=== PATIENT | female | born 1945 | race Caucasian/White ===

== ENCOUNTER → 2021-05-07 | Outpatient (CLI) | payer SELFPAY | END | disposition home or self-care (01) | LOC: LAB SHORT 16:25 | PROVIDERS: Family Medicine | DX: Z51.81 Encounter for therapeutic drug level monitoring (principal); Z79.899 Other long term (current) drug therapy | CPT/HCPCS: G0480 ==

== ENCOUNTER → 2021-10-12 | Outpatient (CLI) | payer MEDICARE, OTHER ==
[2021-10-15 13:12] LABS: FATS, NEUTRAL Normal (.); FATS, TOTAL Normal (.)
== END | disposition home or self-care (01) ==
LOC: LAB SHORT 11:43
PROVIDERS: Family Medicine
DX: R19.7 Diarrhea, unspecified (principal)
CPT/HCPCS: 87015; 87045; 87046; 87205; 87338; 87899

== ENCOUNTER 2022-03-27 19:43 | Inpatient (IN) | payer MEDICARE, OTHER ==
[~2022-03-27] VITALS: Ht 170.2 cm; Wt 114.4 kg
[2022-03-27 20:28] LABS: BASOPHILS ABSOLUTE AUTO 0.11 K/mm3 (0.00-0.23); BASOPHILS PERCENT AUTO 1 % (0-2); EOSINOPHILS PERCENT AUTO 2 % (0-6); Hematocrit 35.3 % (33.0-51.0); Hemoglobin 11.1 g/dL (11.5-16.0); IMMATURE GRAN ABSOLUTE AUTO 0.43 K/mm3 (0.00-0.10); IMMATURE GRAN PERCENT AUTO 3 % (0-1); LYMPHOCYTES ABSOLUTE AUTO 2.18 K/mm3 (0.84-5.20); LYMPHOCYTES PERCENT AUTO 15 % (21-46); MONOCYTES PERCENT AUTO 11 % (4-13); Mean Corpuscular HGB 27.3 pg (26.0-34.0); Mean Corpuscular HGB Conc 31.4 g/dL (31.5-36.5); Mean Corpuscular Volume 87 fL (80-100); Mean Platelet Volume 10.2 fL (9.1-12.4); NEUTROPHILS ABSOLUTE AUTO 9.97 K/mm3 (1.96-9.15); NEUTROPHILS PERCENT AUTO 68 % (41-73); Platelet Count 332 K/mm3 (150-400); RDW Coefficient Variation 16.8 % (11.7-14.2); RDW Standard Deviation 53.7 fL (35.1-46.3); Red Blood Cell Count 4.07 M/mm3 (3.80-5.20); White Blood Cell Count 14.59 K/mm3 (4.00-11.30)
[2022-03-27 20:44] LABS: Albumin/Globulin Ratio 0.6 (0.8-1.8); Bilirubin, Total 0.3 mg/dL (0.1-1.0); Bun/Creatinine Ratio 8.5 (12.0-20.0); Calcium, Blood 8.4 mg/dL (8.5-10.1); Creatinine, Blood 15.7 mg/dL (0.40-1.00); Globulin, Blood 5.3 g/dL (2.2-4.0); Total Protein, Blood 8.3 g/dL (6.4-8.2)
[2022-03-27 21:19] LABS: Source, Urine Clean Catch
[2022-03-27 21:28] LABS: Appearance, Urine Cloudy (Clear); Blood, Urine 5+ (Neg); Color, Urine Amber (P-Yellow); Glucose Qualitative, Urine Neg (Neg); Ketones, Urine 1+ (Neg); Leukocyte Esterase, Urine 3+ (Neg); Nitrite, Urine Pos (Neg); Protein, Urine 3+ (Neg); Urobilinogen, Urine NORM (Normal)
[2022-03-27 22:09] LABS: Magnesium, Blood 2.3 mg/dL (1.6-2.4)
[2022-03-27 22:45] LABS: Phosphorus, Blood 8.7 mg/dL (2.5-4.9)
[2022-03-27 23:21] LABS: Bilirubin, Urine 2+ (Neg)
[2022-03-27 23:39] LABS: Red Blood Cells, Urine 25-50 /hpf (0-2)
[2022-03-27 23:40] LABS: Bacteria Many /hpf; Squamous Epithelial Cells Mod /hpf (Few); White Blood Cells, Urine 50-100 /hpf (0-5)
--- NOTE | 2022-03-28 01:30 | NUR ---
ARRIVAL TO ICU PATIENT ARRIVED TO ICU 14 FROM ER ALERT AND CONVERSING WITH STAFF. 3RD LITER NS BOLUS INF WITH PRESSURE BAG. SODIUM BICARD WITH PATIENT, BUT NOT INF. BELONGINGS PLACED IN CUPBOARD IN ROOM. NO FAMILY OR VISITORS AT BEDSIDE. VSS. WOUNDS PRESENT-SEE WOUND ASSESSMENT IN ADMISSION ASSESSMENT. WARM BLANKETS PROVIDED TO PATIENT. TEMP PABON PATENT AND DRAINING TO GRAVITY. REPORT COMPLETED WITH DANIEL Bridges RN.
[2022-03-28] MEDS ORDERED: LEVSOD75 PO (02:46)
[2022-03-28] MEDS ORDERED: Norco 5-325 Ta1 EACH PO (02:50)
[2022-03-28] MEDS ORDERED: Ropinirole HCl2 MG (02:55)
[2022-03-28 03:42] LABS: Hematocrit 32.6 % (33.0-51.0)
[2022-03-28 04:04] LABS: Magnesium, Blood 2.1 mg/dL (1.6-2.4)
[2022-03-28 04:14] LABS: Albumin, Blood 2.3 g/dL (3.4-5.0); Albumin/Globulin Ratio 0.5 (0.8-1.8); Bilirubin, Total 0.3 mg/dL (0.1-1.0); Bun/Creatinine Ratio 9.3 (12.0-20.0); Calcium, Blood 7.4 mg/dL (8.5-10.1); Creatinine, Blood 13.7 mg/dL (0.40-1.00); Globulin, Blood 4.4 g/dL (2.2-4.0); Phosphorus, Blood 6.9 mg/dL (2.5-4.9); Potassium, Blood 5.4 mmol/L (3.5-5.5); Total Protein, Blood 6.7 g/dL (6.4-8.2)
[2022-03-28 05:19] LABS: Source, Urine Foley catheter
[2022-03-28 05:39] LABS: Appearance, Urine Cloudy (Clear); Blood, Urine 5+ (Neg); Color, Urine Yellow (P-Yellow); Glucose Qualitative, Urine Neg (Neg); Ketones, Urine 1+ (Neg); Leukocyte Esterase, Urine 3+ (Neg); Nitrite, Urine Pos (Neg); Protein, Urine 3+ (Neg); Urobilinogen, Urine NORM (Normal)
[2022-03-28 06:21] LABS: Bilirubin, Urine 2+ (Neg); Red Blood Cells, Urine 25-50 /hpf (0-2); White Blood Cells, Urine TNTC /hpf (0-5)
[2022-03-28 06:22] LABS: Bacteria Many /hpf; Squamous Epithelial Cells Mod /hpf (Few); Transitional Epithelial Cells Few /hpf (0-Rare)
--- NOTE | 2022-03-28 06:35 | NUR ---
SHIFT SUMMARY PATIENT IN BED WATCHING TV. TOLERATED DRINKING COFFEE. BICARD STILL INF. PABON HAD 250ML OUT. BETADINE SOAKED GAUZE TO MAGGOTS IN LLE ULCERATIONS. BP REMAINS SOFT, BUT MAPS GREATER THAN 60. NO ACUTE EVENTS DURING SHIFT.
--- NOTE | 2022-03-28 07:15 | NUR ---
Assumed care of pt at 0715. Report received from offgoing RN. Pt awake, alert and oriented. She is involved in her plan of care and asking appropriate questions. Pt's temp has been steadily increasing and she is now near normothermic. Wounds soaked in betadine to assist with removal of larve. BP remains soft. Dr. Champion in to evaluate pt at shift change. RN to continue to monitor.
--- NOTE | 2022-03-28 15:09 | NUR ---
Spiritual care visit conducted. Pt talks at length about personal issues that revolve around her life story, the loss of loved ones and personal conflicts. I provide therapeutic listening, gentle after school counselor and prayer. Becuase of an immediate therapeutic alliance the conversation had depth to it and pt voiced great appreciation for the trust and encouragement and showed signs of being more at peace.
--- NOTE | 2022-03-28 18:14 | NUR ---
END OF SHIFT SUMMARY NEURO: PT ALERT AND ORIENTED. SLOW TO ANSWER QUESTIONS AFTER NAP BUT RETURNED TO BASELINE AFTER 30 MINUTES. CARDIAC: SR, NO ECTOPY. BP REMAINS SOFT, MAP >60, OK PER MD. RESP: LUNGS CTA ALL TAI, ENCOURAGED COUGH, DEEP BREATHING. SPO2 100% ON RA. GI: EATING WELL. ON INSULIN SLIDING SCALE PRIOR TO MEALS, THIS IS NEW FOR PT AND SHE WAS CONCERNED ABOUT BEING SENT HOME ON INSULIN. EDUCATION DONE RE: RENAL FAILURE AND INSULIN LIKELY BEING TEMPORARY. PT AGREEABLE. BM X1 THIS SHIFT. SOFT, PASTY, BROWN. NOTIFIED JOSH ALSTON STOOL ORDER CANCELLED. : PABON, URINE OUTPUT 800/SHIFT. HARRIET AND CLOUDY. CLEARING THROUGHOUT SHIFT. DR. BOUDREAUX FOLLOWING. SKIN: BLE SCALING, DRY. LLL OPEN AREA WITH LARVE. FULL BATH DONE THIS SHIFT. PT TOLERATED WELL AND WAS APPRECIATIVE. PERIANAL AREA EXCORIATED AND TENDER. CREAM APPLIED. SKIN ABRAISION TO RIGHT ELBOW. PT STATES THIS WAS FROM PULLING HERSELF AROUND THE FLOOR AFTER FALLING OUT OF HER RECLINER AT HOME. SKIN UNDER PANIS RED WITH OPEN RASH. NYSTATIN POWDER APPLIED. WOUND CONSULT ORDER PLACED. PSYCH: SHANICE DODD AND HER SON CREED IN TO VISIT AT BEDSIDE. YOUSIF WOULD LIKE UPDATE FROM MD ALECIA NOTIFIED AND SHE WILL CALL FAMILY TOMORROW. PT/FAMILY AGREEABLE TO THIS PLAN. IV: LEFT FA IV INFILTRATED THIS AM. POWERGLIDE PLACED IN LEFT UPPER ARM, PT TOLERATED WELL. ADDITIONAL PIV FLUSHES WELL. LEFT IN PLACE. PT AND OT EVALUATION ORDERED AND COMPLETED. PT WORKED WITH OT BUT WAS TOO TIRED AFTER TO WORK WITH PT. PALLIATIVE CARE RN FOLLOWING.
--- NOTE | 2022-03-28 20:11 | NUR ---
spoke with patient caregiver and nursing. A few attemtpts to speak with patient. Will see what pt states pt has been declining care from home. Will complet a polst and look at prognosis and plan of care.
[2022-03-29 04:04] LABS: BASOPHILS ABSOLUTE AUTO 0.05 K/mm3 (0.00-0.23); BASOPHILS PERCENT AUTO 1 % (0-2); EOSINOPHILS ABSOLUTE AUTO 0.28 K/mm3 (0.00-0.68); EOSINOPHILS PERCENT AUTO 3 % (0-6); Hemoglobin 8.3 g/dL (11.5-16.0); IMMATURE GRAN ABSOLUTE AUTO 0.35 K/mm3 (0.00-0.10); IMMATURE GRAN PERCENT AUTO 4 % (0-1); LYMPHOCYTES ABSOLUTE AUTO 1.74 K/mm3 (0.84-5.20); LYMPHOCYTES PERCENT AUTO 20 % (21-46); MONOCYTES ABSOLUTE AUTO 1.05 K/mm3 (0.16-1.47); MONOCYTES PERCENT AUTO 12 % (4-13); Mean Corpuscular HGB 26.9 pg (26.0-34.0); Mean Corpuscular HGB Conc 31.9 g/dL (31.5-36.5); Mean Corpuscular Volume 84 fL (80-100); NEUTROPHILS ABSOLUTE AUTO 5.42 K/mm3 (1.96-9.15); NEUTROPHILS PERCENT AUTO 61 % (41-73); Platelet Count 277 K/mm3 (150-400); RDW Coefficient Variation 16.8 % (11.7-14.2); Red Blood Cell Count 3.09 M/mm3 (3.80-5.20); White Blood Cell Count 8.89 K/mm3 (4.00-11.30)
[2022-03-29 04:42] LABS: Magnesium, Blood 1.9 mg/dL (1.6-2.4)
[2022-03-29 04:44] LABS: Albumin, Blood 2.1 g/dL (3.4-5.0); Anion Gap 13 mmol/L (6-16); Blood Urea Nitrogen 117 mg/dL (8-24); Bun/Creatinine Ratio 12.3 (12.0-20.0); CO2, Blood 20 mmol/L (21-32); Chloride, Blood 109 mmol/L (98-108); Creatinine, Blood 9.53 mg/dL (0.40-1.00); Glomerular Filtration Rate 4 (60-); Glucose, Blood 134 mg/dL (70-99); Phosphorus, Blood 5.4 mg/dL (2.5-4.9); Potassium, Blood 4.4 mmol/L (3.5-5.5); Sodium, Blood 142 mmol/L (136-145)
--- NOTE | 2022-03-29 05:19 | NUR ---
SHIFT SUMMARY: PT. REMAINED STABLE OVERNIGHT, PAIN MEDS WERE GIVEN ONCE OVERNIGHT FOR PAIN IN LEG. BICARB IS STILL RUNNING AT 100 AND VS HAVE ALL BEEN WNL ASIDE FROM SOME HYPOTENSION WHICH IS NORMAL FOR THIS PATIENT. NO ACUTE EVENTS OVERNIGHT AND PT. IS RESTING COMFORTABLY WITH CALL LIGHT IN REACH.
--- NOTE | 2022-03-29 07:48 | NUR ---
SHIFT ASSESSMENT PT IN BED, NAPPING. INITIALLY SLOW TO RESPOND BUT CLEARED RATHER QUICKLY. A&OX4. FOLLOWING COMMANDS, COOK BUT WEAK. NSR ON THE SWITCHBOARD CLERK. BP SOFT BUT WNL FOR PATIENT. PABON CATH PATENT, DRAINING HARRIET URINE WITH SEDIMENT. SKIN IN FAIR-POOR CONDITION. REDNESS TO COCCYX. PANUS RED, ANTI-FUNGAL POWDER APPLIED. BLE SCALING, VERY DRY. LLE WITH CLEAN DRESSING INTACT, ORDERS IN FOR WOUND CONSULT.
--- NOTE | 2022-03-29 14:11 | NUR ---
Spiritual care visit conducted. Pt is sitting on a chair and alert. Pt tells me about her fears and concerns centered around trust issues and fear of not having any say about or control over her future and her medical decision making. She is tearful at moments but quickly tries to pull herself back together. Her friend and maybe her caregiver arrives and we pray together and then I allow time for them to talk. I provide therapeutic listening and gentle marriage counselor reinforcing pt's voice and weight in her medical decisions. Pt diplays evidence of reduced stress. I will continue to remain available to pt and family.
--- NOTE | 2022-03-29 16:40 | NUR ---
Brief supportive visit this afternoon. Spoke with RN Nanda Guardado prior to visiting with Pt and discussed case. Pt is requesting assistance with completing AD/POLST. Pt resting in bed, alert and answers questions appropriately. Pt confirms her wishes are to complete forms regarding her wishes for life sustaining treatments but is requesting to complete and discuss at a different time. She reports recently taking medication for pain and is feeling sleepy. She also states she would like her friend present when having discussion. Palliative Care will F/U with Pt for advanced care planing.
--- NOTE | 2022-03-29 17:16 | NUR ---
REPORT CALLED TO MEDICAL FLOOR NURSE. TX TO MEDICAL ROOM 331 VIA ICU BED.
--- NOTE | 2022-03-29 18:28 | NUR ---
SHIFT SUMMARY PT UP TO ROOM FROM ICU. TELE BOX ON PT, CONFIRMED WITH CURTAIN MENDER, PT SR IN THE 70'S. PT ALERT AND ORIENTED, CALLS APPROPRIATELY. PT ON RA, SPO2 > 92%. PT X 1 ASSIST WITH GAIT BELT AND FWW. NO C/O PAIN. WILL CONTINUE TO MONITOR. CALL LIGHT WITHIN REACH.
[2022-03-30 05:57] LABS: BASOPHILS ABSOLUTE AUTO 0.04 K/mm3 (0.00-0.23); BASOPHILS PERCENT AUTO 1 % (0-2); EOSINOPHILS ABSOLUTE AUTO 0.23 K/mm3 (0.00-0.68); EOSINOPHILS PERCENT AUTO 3 % (0-6); Hemoglobin 8.3 g/dL (11.5-16.0); IMMATURE GRAN ABSOLUTE AUTO 0.26 K/mm3 (0.00-0.10); IMMATURE GRAN PERCENT AUTO 3 % (0-1); LYMPHOCYTES PERCENT AUTO 19 % (21-46); MONOCYTES ABSOLUTE AUTO 0.89 K/mm3 (0.16-1.47); MONOCYTES PERCENT AUTO 11 % (4-13); Mean Corpuscular HGB 27.2 pg (26.0-34.0); Mean Corpuscular HGB Conc 31.9 g/dL (31.5-36.5); Mean Corpuscular Volume 85 fL (80-100); Mean Platelet Volume 9.9 fL (9.1-12.4); NEUTROPHILS ABSOLUTE AUTO 5.14 K/mm3 (1.96-9.15); NEUTROPHILS PERCENT AUTO 64 % (41-73); Platelet Count 271 K/mm3 (150-400); RDW Coefficient Variation 16.5 % (11.7-14.2); RDW Standard Deviation 51.8 fL (35.1-46.3); Red Blood Cell Count 3.05 M/mm3 (3.80-5.20); White Blood Cell Count 8.06 K/mm3 (4.00-11.30)
[2022-03-30 06:25] LABS: Anion Gap 10 mmol/L (6-16); Blood Urea Nitrogen 107 mg/dL (8-24); Bun/Creatinine Ratio 16.3 (12.0-20.0); CO2, Blood 23 mmol/L (21-32); Calcium, Blood 7.8 mg/dL (8.5-10.1); Chloride, Blood 109 mmol/L (98-108); Creatinine, Blood 6.56 mg/dL (0.40-1.00); Glomerular Filtration Rate 6 (60-); Glucose, Blood 130 mg/dL (70-99); Magnesium, Blood 1.8 mg/dL (1.6-2.4); Phosphorus, Blood 5.1 mg/dL (2.5-4.9); Potassium, Blood 3.9 mmol/L (3.5-5.5); Sodium, Blood 142 mmol/L (136-145)
--- NOTE | 2022-03-30 06:48 | NUR ---
A/OX3-4; BRIEFLY CONFUSED UPON WAKING, EASILY REORIENTED. CALM AND COOPERATIVE WITH CARE. C/O 5/10 PAIN TO BILAT KNEES; PRN ANALGISIC PER ORDERS; HELPFUL PER PATIENT. C/O FEELING NAUSEATED; RESOLVED WITH ZOFRAN. LLE JIL CDI. REPOSITIONED Q2 HRS. TELE: SR 70's. PABON PATENT. BED ALARM SET. CALL LIGHT IN REACH; ENCOURAGED TO MAKE NEEDS KNOWN.
--- NOTE | 2022-03-30 17:25 | NUR ---
SHIFT SUMMARY- PT IS ALERT, PLESANT AND COOPERATIVE. HER APPETITE HAS BEEN POOR BUT SHE HAS EATEN SMALL BITS OF HER MEALS. SHE HAS SLEPT INTERMITENTLY THOURGHOUT THIS SHIFT. SHE WORKED WITH PT THIS SHIFT. SHE WAS UP TO THE CHAIR THIS AFTERNOON. DR. WESTFALL WAS CONSULTED ON THE PT TO EVALUATE HER DEMENTIA. HER BED IS IN THE LOW POSITION AND CALL LIGHT IS WITHIN REACH.
[2022-03-30] MEDS ORDERED: Prinivil10 MG PO (23:41)
[2022-03-30] MEDS ORDERED: GABA100 PO (23:41)
[2022-03-30] MEDS ORDERED: ROPINIROLE HCL2 M1 PO (23:43)
[2022-03-30] MEDS ORDERED: GLUCOPHAGE1000 M1 PO (23:44)
--- NOTE | 2022-03-31 04:23 | NUR ---
SHIFT SUMMARY: Pt A/Ox4 this shift but can be forgetful, bed alarm utilized. Pt had some c/o pain- recieved PRN oxy x1. Denies SOB or nausea. Transferred 2 assist walker/belt from the chair into bed. Pt is incontient of bowels at times. Salazar remains patent and had adequate amounts of urine. Pt reposionted throughout the night as she stated her coccyx was sore.
[2022-03-31 06:28] LABS: BASOPHILS ABSOLUTE AUTO 0.05 K/mm3 (0.00-0.23); BASOPHILS PERCENT AUTO 1 % (0-2); EOSINOPHILS ABSOLUTE AUTO 0.22 K/mm3 (0.00-0.68); EOSINOPHILS PERCENT AUTO 3 % (0-6); Hematocrit 27.7 % (33.0-51.0); Hemoglobin 8.6 g/dL (11.5-16.0); IMMATURE GRAN ABSOLUTE AUTO 0.31 K/mm3 (0.00-0.10); IMMATURE GRAN PERCENT AUTO 4 % (0-1); LYMPHOCYTES ABSOLUTE AUTO 1.48 K/mm3 (0.84-5.20); LYMPHOCYTES PERCENT AUTO 18 % (21-46); MONOCYTES ABSOLUTE AUTO 0.86 K/mm3 (0.16-1.47); MONOCYTES PERCENT AUTO 10 % (4-13); Mean Corpuscular HGB 27.3 pg (26.0-34.0); Mean Corpuscular Volume 88 fL (80-100); Mean Platelet Volume 9.7 fL (9.1-12.4); NEUTROPHILS ABSOLUTE AUTO 5.37 K/mm3 (1.96-9.15); NEUTROPHILS PERCENT AUTO 65 % (41-73); Platelet Count 274 K/mm3 (150-400); RDW Coefficient Variation 16.5 % (11.7-14.2); RDW Standard Deviation 52.9 fL (35.1-46.3); Red Blood Cell Count 3.15 M/mm3 (3.80-5.20); White Blood Cell Count 8.29 K/mm3 (4.00-11.30)
[2022-03-31 06:51] LABS: Albumin, Blood 2.1 g/dL (3.4-5.0); Anion Gap 8 mmol/L (6-16); Blood Urea Nitrogen 80 mg/dL (8-24); Bun/Creatinine Ratio 19.1 (12.0-20.0); CO2, Blood 27 mmol/L (21-32); Calcium, Blood 7.7 mg/dL (8.5-10.1); Chloride, Blood 109 mmol/L (98-108); Creatinine, Blood 4.19 mg/dL (0.40-1.00); Glomerular Filtration Rate 10 (60-); Glucose, Blood 180 mg/dL (70-99); Magnesium, Blood 1.6 mg/dL (1.6-2.4); Phosphorus, Blood 3.9 mg/dL (2.5-4.9); Potassium, Blood 3.7 mmol/L (3.5-5.5); Sodium, Blood 144 mmol/L (136-145)
--- NOTE | 2022-03-31 16:39 | NUR ---
SHIFT SUMMARY- PT IS ALERT, PLESANT AND COOPERATIVE. HER APPETITE IS POOR. SHE HAS HAD SOME NAUSEA THIS SHIFT. DR. WESTFALL SAW HER THIS SHIFT RECOMENDED GUARDIANSHIP. SHE WAS UP TO THE CHAIR THIS SHIFT. HER BED IS IN THE LOW POSITION AND CALL LIGHT IS WITHIN REACH.
--- NOTE | 2022-04-01 04:29 | NUR ---
SHIFT SUMMARY: Patient A/Ox4 and call light approriate this shift. Pt pleasant and cooperative with staff. Overnight pt had c/o bilateral knee pain and back pain. PRN oxy given x1 this shift. Pt denied nausea but noted she has had no appetite the last few days. Pt was repositioned as tolerated in bed. Salazar remains patent and has adequate output.
[2022-04-01 05:45] LABS: BASOPHILS ABSOLUTE AUTO 0.06 K/mm3 (0.00-0.23); BASOPHILS PERCENT AUTO 1 % (0-2); EOSINOPHILS ABSOLUTE AUTO 0.25 K/mm3 (0.00-0.68); EOSINOPHILS PERCENT AUTO 3 % (0-6); Hematocrit 26.9 % (33.0-51.0); Hemoglobin 8.4 g/dL (11.5-16.0); IMMATURE GRAN ABSOLUTE AUTO 0.23 K/mm3 (0.00-0.10); IMMATURE GRAN PERCENT AUTO 3 % (0-1); LYMPHOCYTES ABSOLUTE AUTO 1.77 K/mm3 (0.84-5.20); LYMPHOCYTES PERCENT AUTO 19 % (21-46); MONOCYTES ABSOLUTE AUTO 1.01 K/mm3 (0.16-1.47); MONOCYTES PERCENT AUTO 11 % (4-13); Mean Corpuscular HGB 27.5 pg (26.0-34.0); Mean Corpuscular HGB Conc 31.2 g/dL (31.5-36.5); Mean Corpuscular Volume 88 fL (80-100); Mean Platelet Volume 9.7 fL (9.1-12.4); NEUTROPHILS ABSOLUTE AUTO 5.96 K/mm3 (1.96-9.15); NEUTROPHILS PERCENT AUTO 64 % (41-73); Platelet Count 300 K/mm3 (150-400); RDW Coefficient Variation 16.1 % (11.7-14.2); Red Blood Cell Count 3.06 M/mm3 (3.80-5.20); White Blood Cell Count 9.28 K/mm3 (4.00-11.30)
[2022-04-01 06:10] LABS: Anion Gap 6 mmol/L (6-16); Blood Urea Nitrogen 60 mg/dL (8-24); Bun/Creatinine Ratio 23.3 (12.0-20.0); CO2, Blood 29 mmol/L (21-32); Calcium, Blood 7.7 mg/dL (8.5-10.1); Chloride, Blood 107 mmol/L (98-108); Creatinine, Blood 2.58 mg/dL (0.40-1.00); Glomerular Filtration Rate 19 (60-); Glucose, Blood 149 mg/dL (70-99); Magnesium, Blood 1.3 mg/dL (1.6-2.4); Phosphorus, Blood 3.1 mg/dL (2.5-4.9); Potassium, Blood 3.8 mmol/L (3.5-5.5); Sodium, Blood 142 mmol/L (136-145)
--- NOTE | 2022-04-01 15:21 | NUR ---
DRESSING ON RLE CHANGED TODAY, 04/01/22, PER ORDER. PT TOLERATED WELL. PT STATED WOUND WAS TENDER BUT LOOKED BETTER THAN WHEN SHE FIRST ARRIVED. MOISTURIZER APPLIED TO BLE AFTER DRESSING CHANGE. PT RESTING WITH CALL LIGHT IN REACH.
--- NOTE | 2022-04-01 16:30 | NUR ---
SHIFT SUMMARY PT IS A&O X4 AND PLEASANT. PT WORKED WITH OT AND PT TODAY AND TOLERATED WELL. PT MOTIVATED TO COMPLETE RECOMENDED EXERCISES AND AMBULATE. PT ASKED TO AMBULATE IN ROOM. PHYSICAL THERAPIST TOLD THIS NURSE THAT IT IS OK TO PUSH CHAIR CLOSE TO BATHROOM DOOR TO ALLOW PT TO AMBULATE THAT DISTANCE, TOLERATED. DRESSING ON RLE CHANGED TODAY PER ORDERS. PT TOLERATED WELL. FOAM DRESSING PLACED ON BUTTOCKS R/T OPENDED AREA. SMALL AMOUNT OF BLOOD NOTED FROM OPEN AREA. PT STATES BOTTOM IS TENDER. FLOATED PT ON PILLOWS WHILE IN BED. PT WAS UP TO CHAIR FOR MEALS. TOLERATING MEALS. USES CALL LIGHT APROPTIATELY. BED IN LOWEST POSITION AND CALL LIGHT IN REACH.
--- NOTE | 2022-04-01 17:48 | NUR ---
DR. LAYTON NOTIFED OF PRELIMINARY LOWER EXTREMITY ULTRASOUND REPORT. DVT FOUND ON ULTRASOUND FROM GROIN TO CALF. ORDERS UPDATED FOR HEPRIN DRIP.
[2022-04-01 18:50] LABS: Anti-Xa UFH, PHA Monitoring <0.10 IU/mL; International Normalized Ratio 1.11; Prothrombin Time Results 11.6 Sec (9.7-11.5)
[2022-04-02 01:32] LABS: BASOPHILS ABSOLUTE AUTO 0.05 K/mm3 (0.00-0.23); BASOPHILS PERCENT AUTO 1 % (0-2); EOSINOPHILS ABSOLUTE AUTO 0.27 K/mm3 (0.00-0.68); EOSINOPHILS PERCENT AUTO 3 % (0-6); Hematocrit 27.6 % (33.0-51.0); Hemoglobin 8.5 g/dL (11.5-16.0); IMMATURE GRAN ABSOLUTE AUTO 0.21 K/mm3 (0.00-0.10); IMMATURE GRAN PERCENT AUTO 2 % (0-1); LYMPHOCYTES ABSOLUTE AUTO 1.98 K/mm3 (0.84-5.20); LYMPHOCYTES PERCENT AUTO 20 % (21-46); MONOCYTES ABSOLUTE AUTO 0.95 K/mm3 (0.16-1.47); MONOCYTES PERCENT AUTO 10 % (4-13); Mean Corpuscular HGB 27.2 pg (26.0-34.0); Mean Corpuscular HGB Conc 30.8 g/dL (31.5-36.5); Mean Corpuscular Volume 88 fL (80-100); Mean Platelet Volume 9.5 fL (9.1-12.4); NEUTROPHILS ABSOLUTE AUTO 6.52 K/mm3 (1.96-9.15); NEUTROPHILS PERCENT AUTO 65 % (41-73); Platelet Count 289 K/mm3 (150-400); RDW Coefficient Variation 16.1 % (11.7-14.2); RDW Standard Deviation 51.7 fL (35.1-46.3); Red Blood Cell Count 3.13 M/mm3 (3.80-5.20); White Blood Cell Count 9.98 K/mm3 (4.00-11.30)
[2022-04-02 01:53] LABS: Albumin/Globulin Ratio 0.5 (0.8-1.8); Bilirubin, Total 0.2 mg/dL (0.1-1.0); Calcium, Blood 7.7 mg/dL (8.5-10.1); Creatinine, Blood 1.87 mg/dL (0.40-1.00); Globulin, Blood 4.3 g/dL (2.2-4.0); Magnesium, Blood 1.7 mg/dL (1.6-2.4); Phosphorus, Blood 2.6 mg/dL (2.5-4.9); Potassium, Blood 3.7 mmol/L (3.5-5.5); Total Protein, Blood 6.3 g/dL (6.4-8.2)
--- NOTE | 2022-04-02 08:15 | NUR ---
CRITICAL CARE NURSE SUMMARY PATIENT A&OX4, EXTREMELY WEAK. BILATERAL LOWER EXTREMITIES VERY RED, AND EXCORIATED LOOKING WITH LARGE PATCHED OF DRY SKIN AND SCABS. BILATERAL PEDAL PULSES FAINT BUT PALPABLE. FEET COOL. (NOT COLD) PATIENT TOLERATING HEPARIN GTT CURRENTLY RUNNING AT 29.9 ML/HR OR 18 UNITS/KG/HOUR. PATIENT'S POWER GLIDE IV VERY POSITIONAL, AND DOES NOT DRAW, SHE COULD BENEFIT FROM A NEW EXTENDED DWELL IF THERE IS SOMEONE HERE TODAY TO PLACE IT.
--- NOTE | 2022-04-02 18:38 | NUR ---
pt has had four bouts of loose stools today, notified Dr. Yanez, recieved orders for gi panel and probiotic, informed pt. medicated for pain once, no further changes this shift, call light in reach.
[2022-04-03 00:05] LABS: Adenovirus F 40/41 Not Detected (NOT DETECT); Astrovirus Not Detected (NOT DETECT); Campylobacter Sp Detected (NOT DETECT); Cryptosporidium Not Detected (NOT DETECT); Cyclospora Cayetanensis Not Detected (NOT DETECT); E. Coli O157 Not Detected (NOT DETECT); Entamoeba Histolytica Not Detected (NOT DETECT); Enteroaggregative E. coli-EAEC Not Detected (NOT DETECT); Enteropathogenic E. coli-EPEC Not Detected (NOT DETECT); Enterotoxigenic E. coli-ETEC Not Detected (NOT DETECT); Giardia Lamblia Not Detected (NOT DETECT); Norovirus GI/GII Not Detected (NOT DETECT); Plesiomonas Shigelloides Not Detected (NOT DETECT); Rotavirus A Not Detected (NOT DETECT); Salmonella Sp Not Detected (NOT DETECT); Sapovirus Not Detected (NOT DETECT); Shiga Toxin-prod E. coli-STEC Not Detected (NOT DETECT); Shigella/Enteroin E. coli-EIEC Not Detected (NOT DETECT); Vibrio Cholerae Not Detected (NOT DETECT); Vibrio Sp Not Detected (NOT DETECT); Yersinia Enterocolitica Not Detected (NOT DETECT)
--- NOTE | 2022-04-03 04:31 | NUR ---
SHIFT SUMMARY NO OVERNIGHT CHANGES IN PT CONDITION. VITALS STABLE, DENIES CP/SOB. X2 LOOSE STOOLS, COLLECTED SAMPLE. STOOL SAMPLE POSITIVE FOR CAMPYLOBACTER. SPUTUM SAMPLE NEEDS COLLECTED, UNABLE TO OBATIN SAMPLE BY PATIENT. BLE RED AND DRY. LLE DRSG INTACT. HEPARIN GTT CONTINUES AT THERAPUTIC RATE. PT ABLE TO USE CALL LIGHT. WILL CONTINUE TO MONITOR
[2022-04-03 05:10] LABS: BASOPHILS ABSOLUTE AUTO 0.05 K/mm3 (0.00-0.23); BASOPHILS PERCENT AUTO 1 % (0-2); EOSINOPHILS ABSOLUTE AUTO 0.24 K/mm3 (0.00-0.68); EOSINOPHILS PERCENT AUTO 2 % (0-6); Hematocrit 28.1 % (33.0-51.0); Hemoglobin 8.6 g/dL (11.5-16.0); IMMATURE GRAN ABSOLUTE AUTO 0.13 K/mm3 (0.00-0.10); IMMATURE GRAN PERCENT AUTO 1 % (0-1); LYMPHOCYTES ABSOLUTE AUTO 2.52 K/mm3 (0.84-5.20); LYMPHOCYTES PERCENT AUTO 25 % (21-46); MONOCYTES ABSOLUTE AUTO 0.94 K/mm3 (0.16-1.47); MONOCYTES PERCENT AUTO 9 % (4-13); Mean Corpuscular HGB 27.1 pg (26.0-34.0); Mean Corpuscular HGB Conc 30.6 g/dL (31.5-36.5); Mean Corpuscular Volume 89 fL (80-100); Mean Platelet Volume 9.4 fL (9.1-12.4); NEUTROPHILS ABSOLUTE AUTO 6.11 K/mm3 (1.96-9.15); NEUTROPHILS PERCENT AUTO 61 % (41-73); Platelet Count 308 K/mm3 (150-400); RDW Coefficient Variation 16.1 % (11.7-14.2); RDW Standard Deviation 52.4 fL (35.1-46.3); Red Blood Cell Count 3.17 M/mm3 (3.80-5.20); White Blood Cell Count 9.99 K/mm3 (4.00-11.30)
[2022-04-03 05:52] LABS: Albumin/Globulin Ratio 0.5 (0.8-1.8); Bilirubin, Total 0.3 mg/dL (0.1-1.0); Bun/Creatinine Ratio 17.4 (12.0-20.0); Calcium, Blood 8.3 mg/dL (8.5-10.1); Creatinine, Blood 1.49 mg/dL (0.40-1.00); Globulin, Blood 4.2 g/dL (2.2-4.0); Potassium, Blood 3.9 mmol/L (3.5-5.5); Total Protein, Blood 6.2 g/dL (6.4-8.2)
--- NOTE | 2022-04-03 12:30 | NUR ---
DRESSING CHANGE COMPLETED PER ORDER ON 04/03/22, ON LOWER LEFT LEG. PT TOLERATED WELL. SCANT AMOUNT OF YELLOW, PURULENT DRAINAGE IN WOUND BED. BANDAGE ON RIGHT ELBOW REMOVED AND NEW DRESSING APPLIED. KENDRICK SIZE WOUND WITH AN AREA OF SCAB AND YELLOWISH, OPEN AREA.
--- NOTE | 2022-04-03 16:38 | NUR ---
SHIFT SUMMARY PT A&OX4 AND PLEASANT. NO ACUTE CHANGES. DRESSINGS ON RIGHT ELBOW AND LEFT LOWER LEG WERE CHANGED TODAY. PT TOLERATED WELL. APPLIED BARRIER CREAM ON EXORIATED AREA ON BUTTOCKS. PT C/O PAIN ON BOTTOM AND HAD DIFFICULTY GETTING COMFORTABLE. MEDICATED X1 PER EAMR. PT DOES WELL WHEN FLOATED ON PILLOWS AND HEAD ELAVATED. PT STATED SHE "FELT WEEZY" IN HER LUNGS. REASSESED LUNGS AND LUNGS SOUNDED CLEAR BUT DIMINISHED. PROVIDED PT WITH INCENTIVE SPIROMETER AND EDUCATED PT ON USE. PER TELEPHONE CALL WITH DR MATTHEWS, PT IS OK TO GET UP TO BEDSIDE CHAIR. HEPRIN DRIP HAS BEEN RUNNING CONTINUOUSLY. BED IN LOWEST POSITION AND CALL LIGHT IN REACH.
[2022-04-04 03:15] LABS: BASOPHILS ABSOLUTE AUTO 0.08 K/mm3 (0.00-0.23); BASOPHILS PERCENT AUTO 1 % (0-2); EOSINOPHILS PERCENT AUTO 3 % (0-6); Hematocrit 27.9 % (33.0-51.0); Hemoglobin 8.8 g/dL (11.5-16.0); IMMATURE GRAN ABSOLUTE AUTO 0.12 K/mm3 (0.00-0.10); IMMATURE GRAN PERCENT AUTO 1 % (0-1); LYMPHOCYTES ABSOLUTE AUTO 2.34 K/mm3 (0.84-5.20); LYMPHOCYTES PERCENT AUTO 22 % (21-46); MONOCYTES ABSOLUTE AUTO 0.82 K/mm3 (0.16-1.47); MONOCYTES PERCENT AUTO 8 % (4-13); Mean Corpuscular HGB Conc 31.5 g/dL (31.5-36.5); Mean Corpuscular Volume 89 fL (80-100); Mean Platelet Volume 9.3 fL (9.1-12.4); NEUTROPHILS ABSOLUTE AUTO 7.13 K/mm3 (1.96-9.15); NEUTROPHILS PERCENT AUTO 66 % (41-73); Platelet Count 325 K/mm3 (150-400); RDW Coefficient Variation 16.4 % (11.7-14.2); RDW Standard Deviation 53.2 fL (35.1-46.3); Red Blood Cell Count 3.14 M/mm3 (3.80-5.20); White Blood Cell Count 10.79 K/mm3 (4.00-11.30)
[2022-04-04 03:34] LABS: Albumin, Blood 2.1 g/dL (3.4-5.0); Albumin/Globulin Ratio 0.5 (0.8-1.8); Bilirubin, Total 0.3 mg/dL (0.1-1.0); Bun/Creatinine Ratio 14.6 (12.0-20.0); Calcium, Blood 7.8 mg/dL (8.5-10.1); Creatinine, Blood 1.37 mg/dL (0.40-1.00); Globulin, Blood 4.3 g/dL (2.2-4.0); Magnesium, Blood 1.4 mg/dL (1.6-2.4); Phosphorus, Blood 3.2 mg/dL (2.5-4.9); Potassium, Blood 3.8 mmol/L (3.5-5.5); Total Protein, Blood 6.4 g/dL (6.4-8.2)
--- NOTE | 2022-04-04 09:43 | NUR ---
SUMMARY PT RESTED COMFORTABLY THIS SHIFT WITH PO PAIN MED,PT WAS GIVEN ADDITIONAL BOLUS OF HEPARIN THIS AM PER PHARM ORDERS.ALSO INCREASED DOSING PER ORDERS
--- NOTE | 2022-04-04 17:31 | NUR ---
SHIFT SUMMARY: PATIENT A&OX4. PLEASANT AND COOPERATIVE WITH CARE. USES CALL LIGHT APPROPRIATELY AND ABLE TO ADVOCATE FOR HER NEEDS. DENIED CP/CHEST DISCOMFORT. DENIED SOB. PATIENT ON RA WITH SPO2 ABOVE 93%. LUNGS CLEAR T/O. PATIENT WAS ABLE TO PARTICIPATE WITH PT/OT TODAY AND TOLERATED SITTING UP IN THE RECLINER CHAIR FOR ABOUT 5 HOURS. DRESSING CHANGED TO LLE. HEPARIN WAS DC'D THIS AFTERNOON AND STARTED ON ELIQUIS. POWERGLIDE TO OANH INFUSING ONE TIME DOSE OF MAGSULFATE AT THIS TIME. RECEIVED ALL SCHEDULED MEDS THIS SHIFT. VITAL SIGNS REVIEWED. PABON INPLACE FOR ACCURATE I&O'S, PATENT, DRAINING TO GRAVITY WITH YELLOW URINE. PATIENT IS INCONTININCE FOR BOWELS AND WEAR ATTENDS. MIPELIX DRESSING CHANGE TO COCCYX. BED IN LOWEST POSITION, LOCKED AND BED ALARM ON FOR SAFETY. CALL LIGHT AND ICE WATER WITHIN REACH.
[2022-04-05 09:17] LABS: BASOPHILS ABSOLUTE AUTO 0.07 K/mm3 (0.00-0.23); BASOPHILS PERCENT AUTO 1 % (0-2); EOSINOPHILS PERCENT AUTO 4 % (0-6); Hematocrit 29.1 % (33.0-51.0); Hemoglobin 9.1 g/dL (11.5-16.0); IMMATURE GRAN ABSOLUTE AUTO 0.06 K/mm3 (0.00-0.10); IMMATURE GRAN PERCENT AUTO 1 % (0-1); LYMPHOCYTES ABSOLUTE AUTO 1.53 K/mm3 (0.84-5.20); LYMPHOCYTES PERCENT AUTO 18 % (21-46); MONOCYTES ABSOLUTE AUTO 0.72 K/mm3 (0.16-1.47); MONOCYTES PERCENT AUTO 8 % (4-13); Mean Corpuscular HGB 27.7 pg (26.0-34.0); Mean Corpuscular HGB Conc 31.3 g/dL (31.5-36.5); Mean Corpuscular Volume 89 fL (80-100); Mean Platelet Volume 9.9 fL (9.1-12.4); NEUTROPHILS ABSOLUTE AUTO 5.93 K/mm3 (1.96-9.15); NEUTROPHILS PERCENT AUTO 69 % (41-73); Platelet Count 381 K/mm3 (150-400); RDW Coefficient Variation 16.6 % (11.7-14.2); RDW Standard Deviation 53.7 fL (35.1-46.3); Red Blood Cell Count 3.28 M/mm3 (3.80-5.20); White Blood Cell Count 8.61 K/mm3 (4.00-11.30)
[2022-04-05 09:51] LABS: Albumin, Blood 2.3 g/dL (3.4-5.0); Albumin/Globulin Ratio 0.5 (0.8-1.8); Bilirubin, Total 0.4 mg/dL (0.1-1.0); Bun/Creatinine Ratio 10.8 (12.0-20.0); Creatinine, Blood 1.3 mg/dL (0.40-1.00); Globulin, Blood 4.5 g/dL (2.2-4.0); Phosphorus, Blood 3.7 mg/dL (2.5-4.9); Total Protein, Blood 6.8 g/dL (6.4-8.2)
[2022-04-05] MEDS ORDERED: Acetaminophen325 M1 PO (12:29)
[2022-04-05] MEDS ORDERED: ELIQUIS5 M2 PO ×2 (12:29→12:30)
[2022-04-05] MEDS ORDERED: FURO20 PO (12:30)
[2022-04-05] MEDS ORDERED: MICONAZOLE NITR85 GM TOP (12:32)
[2022-04-05] MEDS ORDERED: VISBIOME 112.51 EACH PO (12:33)
[2022-04-05] MEDS ORDERED: POTA10T PO (12:33)
[2022-04-05 12:48] LABS: SARS-Cov-2 (COVID-19) PCR, MMC NEGATIVE (NEGATIVE)
--- NOTE | 2022-04-05 15:33 | NUR ---
REPORT GIVEN TO FLAVIA MARION AT [facility].
--- NOTE | 2022-04-05 15:55 | NUR ---
Patient is lying in bed and in street clothes. She states that she will be going to [facility] today. She then talks about her ups and downs with her health and how she feels like overall her experience has been extremely helpful both physically but spiritually as well. She talks about her struggles with depression and how the "hole she was slipping down into" has lost it's pull and power. She says that she is in a much better place and part of that improvement came from the spiritual care visits. She voices her appreciation. We then pray about the success of her new adventure to gain strength, health and mobility. She expresses gratitude for the prayer. I let her rest as transport is scheduled to arrive soon.
--- NOTE | 2022-04-05 16:36 | NUR ---
PATIENT DISCHARGED TO [facility]. POWERGLIDE IV REMOVED WITHOUT INCIDENT. PABON IN PLACE FOR NEUROGENIC BLADDER. DRESSED IN OWN CLOTHING. OFF UNIT VIA W/C AT 1633, TRANSPORTED BY W/C VAN. NO PERSONAL BELONGINGS FOUND LEFT BEHIND IN ROOM.
== END 2022-04-05 16:33 | DRG 872 ==
LOC: ER 19:43 → ICUW 23:08 → MEDS 23:08 → ICUW 03-28 00:53 → MEDS 03-29 17:15
PROVIDERS: Family Medicine; Hospitalist; Internal Medicine Nephrology; Student in an Organized Health Care Education/Training Program; ADMIT Internal Medicine
DX: A41.9 Sepsis, unspecified organism (principal); N17.9 Acute kidney failure, unspecified; E87.1 Hypo-osmolality and hyponatremia; A04.5 Campylobacter enteritis; I82.452 Acute embolism and thrombosis of left peroneal vein; I82.492 Acute embolism and thrombosis of other specified deep vein of left lower extremity; L03.116 Cellulitis of left lower limb; L03.115 Cellulitis of right lower limb; E87.20 Acidosis, unspecified; I82.412 Acute embolism and thrombosis of left femoral vein; I82.432 Acute embolism and thrombosis of left popliteal vein; I82.442 Acute embolism and thrombosis of left tibial vein; Z98.890 Other specified postprocedural states; R65.20 Severe sepsis without septic shock; E11.22 Type 2 diabetes mellitus with diabetic chronic kidney disease; E11.40 Type 2 diabetes mellitus with diabetic neuropathy, unspecified; Z20.822 Contact with and (suspected) exposure to COVID-19; E87.5 Hyperkalemia; E83.39 Other disorders of phosphorus metabolism; I95.9 Hypotension, unspecified; F60.9 Personality disorder, unspecified; I83.029 Varicose veins of left lower extremity with ulcer of unspecified site; D63.1 Anemia in chronic kidney disease; F03.90 Unspecified dementia, unspecified severity, without behavioral disturbance, psychotic disturbance, mood disturbance, and anxiety; G89.4 Chronic pain syndrome; Z88.8 Allergy status to other drugs, medicaments and biological substances; K21.9 Gastro-esophageal reflux disease without esophagitis; G25.81 Restless legs syndrome; E88.09 Other disorders of plasma-protein metabolism, not elsewhere classified
CPT/HCPCS: 36415; 76770; 80053; 80069; 81001; 82607; 82728; 82746; 82947; 83540; 83550; 83605; 83690; 83735; 83880; 84100; 84132; 85014; 85018; 85025; 85520; 85610; 85730; 87040; 87070; 87075; 87077; 87086; 87147; 87186; 87205; 87507; 93005; 93010; 93970; 96361-59; 96374-59; 96375-59; 97110; 97116; 97129; 97162; 97166; 97530; 97535; 99285-25; A9270; C1751; J0690; J0696; J0881; J1644; J2405; J3475; J7030; J7042; J7050; U0004

== ENCOUNTER 2022-06-27 12:25 | Inpatient (IN) | payer MEDICARE, OTHER ==
[~2022-06-27] VITALS: Ht 170.2 cm; Wt 115.0 kg
[~2022-06-27 12:25] MED LIST: Acetaminophen325 M1 PO; ELIQUIS5 M2 PO; FURO20 PO; GABA100 PO; GLUCOPHAGE1000 M1 PO; LEVSOD75 PO; MICONAZOLE NITR85 GM TOP; Norco 5-325 Ta1 EACH PO; POTA10T PO; Prinivil10 MG PO; ROPINIROLE HCL2 M1 PO; Ropinirole HCl2 MG; VISBIOME 112.51 EACH PO
[2022-06-27 13:13] LABS: BASOPHILS ABSOLUTE AUTO 0.09 K/mm3 (0.00-0.23); BASOPHILS PERCENT AUTO 1 % (0-2); EOSINOPHILS ABSOLUTE AUTO 0.21 K/mm3 (0.00-0.68); EOSINOPHILS PERCENT AUTO 1 % (0-6); Hematocrit 33.1 % (33.0-51.0); Hemoglobin 10.5 g/dL (11.5-16.0); IMMATURE GRAN PERCENT AUTO 1 % (0-1); LYMPHOCYTES ABSOLUTE AUTO 1.29 K/mm3 (0.84-5.20); LYMPHOCYTES PERCENT AUTO 7 % (21-46); MONOCYTES ABSOLUTE AUTO 1.11 K/mm3 (0.16-1.47); MONOCYTES PERCENT AUTO 6 % (4-13); Mean Corpuscular HGB 28.7 pg (26.0-34.0); Mean Corpuscular HGB Conc 31.7 g/dL (31.5-36.5); Mean Corpuscular Volume 90 fL (80-100); Mean Platelet Volume 9.3 fL (9.1-12.4); NEUTROPHILS ABSOLUTE AUTO 14.64 K/mm3 (1.96-9.15); NEUTROPHILS PERCENT AUTO 84 % (41-73); Platelet Count 358 K/mm3 (150-400); RDW Coefficient Variation 15.5 % (11.7-14.2); RDW Standard Deviation 51.4 fL (35.1-46.3); Red Blood Cell Count 3.66 M/mm3 (3.80-5.20); White Blood Cell Count 17.44 K/mm3 (4.00-11.30)
[2022-06-27 13:45] LABS: Albumin, Blood 2.9 g/dL (3.4-5.0); Albumin/Globulin Ratio 0.5 (0.8-1.8); Bilirubin, Total 0.4 mg/dL (0.1-1.0); Bun/Creatinine Ratio 27.9 (12.0-20.0); Calcium, Blood 8.6 mg/dL (8.5-10.1); Creatinine, Blood 2.04 mg/dL (0.40-1.00); Globulin, Blood 5.5 g/dL (2.2-4.0); Potassium, Blood 5.1 mmol/L (3.5-5.5); Total Protein, Blood 8.4 g/dL (6.4-8.2)
[2022-06-27 18:39] LABS: Source, Urine Straight Cath
[2022-06-27 18:52] LABS: Appearance, Urine Hazy (Clear); Bilirubin, Urine Neg (Neg); Blood, Urine 4+ (Neg); Color, Urine Yellow (P-Yellow); Glucose Qualitative, Urine Neg (Neg); Ketones, Urine Neg (Neg); Leukocyte Esterase, Urine Neg (Neg); Nitrite, Urine Neg (Neg); Protein, Urine 1+ (Neg); Specific Gravity, Urine 1.015 (1.003-1.022); Urobilinogen, Urine NORM (Normal)
[2022-06-27 19:15] LABS: Bacteria Few /hpf; Squamous Epithelial Cells Few /hpf (Few); White Blood Cells, Urine 0-2 /hpf (0-5)
--- NOTE | 2022-06-28 04:25 | NUR ---
SHIFT SUMMARY PATIENT IS ALERT AND ORIENTED. PATIENT HAS NOT HAD ANY ACUTE EVENTS THIS SHIFT. VITAL SIGNS REVIEWED. PATIENT IS ADMITED FOR CELLULITIS. PATIENT HAS HAD PAIN IN LEGS AND MEDICATED PRN FOR PAIN. PATIENT HAS NOT HAD ANY COMPLAINTS OF SOB, NAUSEA, OR VOMITTING THIS SHIFT. PICTURES ARE IN CHART OF LOWER BILATERAL CELLULITIS IN LEGS. BED IN LOCKED AND LOWEST POSITION. CALL LIGHT IN PLACE. WILL MONITOR UNTIL SHIFT CHANGE.
[2022-06-28 06:07] LABS: BASOPHILS ABSOLUTE AUTO 0.07 K/mm3 (0.00-0.23); BASOPHILS PERCENT AUTO 1 % (0-2); EOSINOPHILS ABSOLUTE AUTO 0.37 K/mm3 (0.00-0.68); EOSINOPHILS PERCENT AUTO 3 % (0-6); Hematocrit 26.2 % (33.0-51.0); Hemoglobin 8.4 g/dL (11.5-16.0); IMMATURE GRAN ABSOLUTE AUTO 0.08 K/mm3 (0.00-0.10); IMMATURE GRAN PERCENT AUTO 1 % (0-1); LYMPHOCYTES PERCENT AUTO 11 % (21-46); MONOCYTES ABSOLUTE AUTO 1.11 K/mm3 (0.16-1.47); MONOCYTES PERCENT AUTO 9 % (4-13); Mean Corpuscular HGB 28.2 pg (26.0-34.0); Mean Corpuscular HGB Conc 32.1 g/dL (31.5-36.5); Mean Corpuscular Volume 88 fL (80-100); Mean Platelet Volume 9.5 fL (9.1-12.4); NEUTROPHILS ABSOLUTE AUTO 9.47 K/mm3 (1.96-9.15); NEUTROPHILS PERCENT AUTO 76 % (41-73); Platelet Count 350 K/mm3 (150-400); RDW Coefficient Variation 15.4 % (11.7-14.2); RDW Standard Deviation 49.7 fL (35.1-46.3); Red Blood Cell Count 2.98 M/mm3 (3.80-5.20)
[2022-06-28 06:30] LABS: Albumin, Blood 2.1 g/dL (3.4-5.0); Albumin/Globulin Ratio 0.4 (0.8-1.8); Bilirubin, Total 0.4 mg/dL (0.1-1.0); Bun/Creatinine Ratio 25.1 (12.0-20.0); Calcium, Blood 8.2 mg/dL (8.5-10.1); Creatinine, Blood 1.79 mg/dL (0.40-1.00); Globulin, Blood 4.8 g/dL (2.2-4.0); Magnesium, Blood 2.6 mg/dL (1.6-2.4); Total Protein, Blood 6.9 g/dL (6.4-8.2)
--- NOTE | 2022-06-28 18:44 | NUR ---
SHIFT SUMMARY PATIENT MEDICATED FOR PAIN X2. PATIENT DENIES NAUSEA AND SHORTNESS OF BREATH. PATIENT IS A&O X4. [place] [facility] HAD VISITOR THIS AFTERNOON. NEW ORDERS FOR WOUND CONSULT. WOUNDS TO LEFT LEG PHOTOGRAPHED AND PLACED IN CHART. DRESSING CHANGE DONE. CONSULT FOR DR. PATTON CALLED. HE SAW PATIENT, PLAN FOR LEFT LEG ANGIO TOMORROW, NPO AFTER BREAKFAST. PATIENT AWARE. PATIENT SBP LOW, DR. OLSON NOTIFIED, FLUIDS ORDERED. PATIENT IS EATING AND DRINKING WELL. PATIENT IS PLEASANT AND COOPERATIVE WITH CARE.
--- NOTE | 2022-06-29 03:54 | NUR ---
GEOSPATIAL TECHNOLOGIST SUMMARY A&OX4. PATIENT EFFECTIVELY COMMUNICATES NEEDS. VSS. RR EVEN AND UNLABORED ON RA. TOLERATING ABO THERAPY. NS INFUSING @75ML/HR. PAIN ASSESSED AND MEDICATED PER EMAR. PATIENT IS TO BE NPO LATER THIS MORNING IN ANTICIPATION OF AN ANGIOGRAM. NO ACUTE EVENTS THROUGHOUT THE NIGHT. BED LOW AND LOCKED. CALL LIGHT WITHIN REACH. THIS RN WILL CONTINUE TO MONITOR.
[2022-06-29 07:56] LABS: BASOPHILS ABSOLUTE AUTO 0.08 K/mm3 (0.00-0.23); BASOPHILS PERCENT AUTO 1 % (0-2); EOSINOPHILS PERCENT AUTO 5 % (0-6); Hematocrit 29.6 % (33.0-51.0); Hemoglobin 9.5 g/dL (11.5-16.0); IMMATURE GRAN ABSOLUTE AUTO 0.05 K/mm3 (0.00-0.10); IMMATURE GRAN PERCENT AUTO 1 % (0-1); LYMPHOCYTES ABSOLUTE AUTO 1.39 K/mm3 (0.84-5.20); LYMPHOCYTES PERCENT AUTO 18 % (21-46); MONOCYTES ABSOLUTE AUTO 0.85 K/mm3 (0.16-1.47); MONOCYTES PERCENT AUTO 11 % (4-13); Mean Corpuscular HGB 28.2 pg (26.0-34.0); Mean Corpuscular HGB Conc 32.1 g/dL (31.5-36.5); Mean Corpuscular Volume 88 fL (80-100); Mean Platelet Volume 9.3 fL (9.1-12.4); NEUTROPHILS ABSOLUTE AUTO 4.86 K/mm3 (1.96-9.15); NEUTROPHILS PERCENT AUTO 64 % (41-73); Platelet Count 378 K/mm3 (150-400); RDW Coefficient Variation 15.2 % (11.7-14.2); Red Blood Cell Count 3.37 M/mm3 (3.80-5.20); White Blood Cell Count 7.63 K/mm3 (4.00-11.30)
[2022-06-29 08:09] LABS: Bun/Creatinine Ratio 20.5 (12.0-20.0); Calcium, Blood 8.4 mg/dL (8.5-10.1); Creatinine, Blood 1.46 mg/dL (0.40-1.00); Potassium, Blood 5.1 mmol/L (3.5-5.5)
--- NOTE | 2022-06-29 13:45 | NUR ---
TRANSFER TO ANGIOGRAM: PATIENT TRANSPORTED TO HEART CENTER VIA WHEELCHAIR WITH HEART RN'S. PATIENT AMBULATED TO THE BATHROOM WITH WALKER. DENIED DIZZINESS. PATIENT SLOW, BUT STEADY.
--- NOTE | 2022-06-29 16:15 | NUR ---
ARRIVAL: Patient arrives to PCU from the phlebotomist medical lab assistant post angio gram of her BLE, per heart center RN arteries in the BLE are clear. There is a plan to come back and look at the venous system of her BLE. The patient is alert and oriented, she reports 7/10 pain in her lower back, she was just medicated with Axtell for pain. HRR, SR in the 60s. LS CTA, biox has been high 90s on RA. BT+. She has a right groin site with an angioseal, teg chg dressing CDI. Site is soft with no hematoma. PPP. Pt has some redness to left thigh, that has stayed in the boundaries of tracing. BLE dry and scaly with a red discoloration. Patient has a dressing to LLE with Kerlex-CDI. PPP, strong. VSS. Patient denies other needs at this time. Call light in reach.
--- NOTE | 2022-06-29 18:03 | NUR ---
Summary: Patient was transferred down to PCU 14 post procedure. She is alert and oriented x4. She has chronic back pain, restless legs, and neuropathy to hands. HRR, Blood pressure stable. LS CTA, Biox high 90s on RA. BT+. She has a right groin site with angioseal and TEG CHG dressing CDI. Site has been soft with no hematoma. HOB is currently at 30 degrees. She has some redness and warmth to her left thigh, this has stayed in the tracing. She has some breakdown in her left groin-pt states she uses powder for this at home. Some redness noted to the coccyx-mepilex in place. BLE from the burdick down are dry and scaly, she has a dressing to the left LE with Kerlex-CDI. VSS. No acute changes this shift. Will report to oncoming RN.
[2022-06-29 21:25] LABS: Vancomycin, Trough 15.4 ug/mL (5.0-10.0)
--- NOTE | 2022-06-30 05:32 | NUR ---
SHIFT SUMMARY ASSUMED CARE OF PT AT 1900. PT IS A/OX4. HEART SOUND SREGULAR. LUNG SOUNDS CLEAR. PT ANGIO SITE IS SOFT WITH NO REDNESS. PT AND THIS NURSE NOTIED THAT PT LEGS ARE NOT RED HAS EARLIER IN THE SHIFT AND SWELLING IS GOING DOWN SLIGHTLY. PT WAS MEDCATED PER PAIN ONCE. PT GOT SOME SLEEP DURING THE NIGHT.
[2022-06-30 07:45] LABS: BASOPHILS ABSOLUTE AUTO 0.09 K/mm3 (0.00-0.23); BASOPHILS PERCENT AUTO 1 % (0-2); EOSINOPHILS ABSOLUTE AUTO 0.42 K/mm3 (0.00-0.68); EOSINOPHILS PERCENT AUTO 5 % (0-6); Hematocrit 28.6 % (33.0-51.0); IMMATURE GRAN ABSOLUTE AUTO 0.04 K/mm3 (0.00-0.10); IMMATURE GRAN PERCENT AUTO 1 % (0-1); LYMPHOCYTES ABSOLUTE AUTO 1.48 K/mm3 (0.84-5.20); LYMPHOCYTES PERCENT AUTO 18 % (21-46); MONOCYTES PERCENT AUTO 10 % (4-13); Mean Corpuscular HGB Conc 31.5 g/dL (31.5-36.5); Mean Corpuscular Volume 89 fL (80-100); Mean Platelet Volume 9.2 fL (9.1-12.4); NEUTROPHILS ABSOLUTE AUTO 5.51 K/mm3 (1.96-9.15); NEUTROPHILS PERCENT AUTO 66 % (41-73); Platelet Count 371 K/mm3 (150-400); RDW Coefficient Variation 15.2 % (11.7-14.2); RDW Standard Deviation 49.5 fL (35.1-46.3); Red Blood Cell Count 3.21 M/mm3 (3.80-5.20); White Blood Cell Count 8.34 K/mm3 (4.00-11.30)
[2022-06-30 07:57] LABS: Bun/Creatinine Ratio 17.5 (12.0-20.0); Calcium, Blood 8.6 mg/dL (8.5-10.1); Creatinine, Blood 1.43 mg/dL (0.40-1.00); Potassium, Blood 5.1 mmol/L (3.5-5.5)
[2022-06-30] MEDS ORDERED: CLINDAMYCIN HC300 MG PO (12:39)
--- NOTE | 2022-06-30 15:14 | NUR ---
SHIFT SUMMARY; DISCHARGED TO HOME. VERBAL AND WRITTEN DISCHARGE INSTRUCTION GIVEN. APPOINT MADE AT WOUND CARE AND PCP. RIGHT LEG WRAPPED BY REGULATORY PRODUCT MANAGER TODAY. A/A/OX4, ABULATES WITH SLOW STEADY GAIT AND FRONT WHEEL WALKER. RX FAXED TO [facility].
== END 2022-06-30 15:55 | disposition home or self-care (01) | DRG 872 ==
LOC: ER 12:25 → MEDS 18:32 → PCU 06-29 14:32
PROVIDERS: Physician Assistant; ADMIT Internal Medicine
DX: A41.9 Sepsis, unspecified organism (principal); L03.116 Cellulitis of left lower limb; L97.929 Non-pressure chronic ulcer of unspecified part of left lower leg with unspecified severity; N18.4 Chronic kidney disease, stage 4 (severe); Z86.718 Personal history of other venous thrombosis and embolism; I12.9 Hypertensive chronic kidney disease with stage 1 through stage 4 chronic kidney disease, or unspecified chronic kidney disease; E11.22 Type 2 diabetes mellitus with diabetic chronic kidney disease; Z85.79 Personal history of other malignant neoplasms of lymphoid, hematopoietic and related tissues; E78.5 Hyperlipidemia, unspecified; I87.2 Venous insufficiency (chronic) (peripheral); E03.9 Hypothyroidism, unspecified; Z20.822 Contact with and (suspected) exposure to COVID-19
CPT/HCPCS: 36415; 51701; 74176; 76937; 80048; 80053; 80202; 81001; 83690; 83735; 85025; 93926; 93971; 96366; 96372; 96374-59; 96376; 99152; 99153; 99285-25; A9270; C1751; C1760; C1769; C1887; C1894; G0378; J0696; J1644; J1650; J2250; J3010; J3370; J7030; J7050; Q9967

== ENCOUNTER 2022-07-22 00:06 | Day surgery (SDC) | payer MEDICARE ==
[~2022-07-22 00:06] MED LIST changes: +CLINDAMYCIN HC300 MG PO
== END 2022-07-22 23:15 | disposition home or self-care (01) ==
LOC: WOUND 00:06
DX: I87.312 Chronic venous hypertension (idiopathic) with ulcer of left lower extremity (principal); L97.822 Non-pressure chronic ulcer of other part of left lower leg with fat layer exposed
CPT/HCPCS: A9270

== ENCOUNTER 2022-08-05 00:19 | Day surgery (SDC) | payer MEDICARE | END 2022-08-05 23:10 | disposition home or self-care (01) | LOC: WOUND 00:19 | DX: I87.312 Chronic venous hypertension (idiopathic) with ulcer of left lower extremity (principal); L97.822 Non-pressure chronic ulcer of other part of left lower leg with fat layer exposed; I73.9 Peripheral vascular disease, unspecified; I87.2 Venous insufficiency (chronic) (peripheral); E11.9 Type 2 diabetes mellitus without complications | CPT/HCPCS: A9270 ==

== ENCOUNTER 2022-08-19 01:51 | Day surgery (SDC) | payer MEDICARE | END 2022-08-19 23:05 | disposition home or self-care (01) | LOC: WOUND 01:51 | DX: I87.312 Chronic venous hypertension (idiopathic) with ulcer of left lower extremity (principal); L97.822 Non-pressure chronic ulcer of other part of left lower leg with fat layer exposed; I87.2 Venous insufficiency (chronic) (peripheral); I73.9 Peripheral vascular disease, unspecified | CPT/HCPCS: G0463 ==

== ENCOUNTER → 2023-05-05 | Outpatient (CLI) | payer MEDICARE ==
[2023-05-05 19:17] LABS: Creatinine Urine 90.2 mg/dL (27.00-270.00); Microalbumin, Urine Quant. 9.98 mg/L (0.000-20.000); Protein, Urine Quantitative 12.3 mg/dL (0.0-11.9)
== END | disposition home or self-care (01) ==
LOC: LAB 05:30 → LAB SHORT 05:30
PROVIDERS: Internal Medicine Nephrology
DX: N18.30 Chronic kidney disease, stage 3 unspecified (principal); D63.1 Anemia in chronic kidney disease; N25.81 Secondary hyperparathyroidism of renal origin; E55.9 Vitamin D deficiency, unspecified; E78.00 Pure hypercholesterolemia, unspecified; R76.9 Abnormal immunological finding in serum, unspecified; R94.5 Abnormal results of liver function studies; R94.6 Abnormal results of thyroid function studies
CPT/HCPCS: 81050; 82043; 82570; 84156

== ENCOUNTER 2023-06-22 20:06 | Inpatient (IN) | payer OTHER ==
[~2023-06-22] VITALS: Ht 170.2 cm; Wt 122.9 kg
[2023-06-22 23:33] LABS: BASOPHILS ABSOLUTE AUTO 0.09 K/mm3 (0.00-0.23); BASOPHILS PERCENT AUTO 1 % (0-2); EOSINOPHILS ABSOLUTE AUTO 0.23 K/mm3 (0.00-0.68); EOSINOPHILS PERCENT AUTO 2 % (0-6); Hematocrit 33.7 % (33.0-51.0); Hemoglobin 11.1 g/dL (11.5-16.0); IMMATURE GRAN ABSOLUTE AUTO 0.05 K/mm3 (0.00-0.10); IMMATURE GRAN PERCENT AUTO 1 % (0-1); LYMPHOCYTES PERCENT AUTO 25 % (21-46); MONOCYTES ABSOLUTE AUTO 0.86 K/mm3 (0.16-1.47); MONOCYTES PERCENT AUTO 9 % (4-13); Mean Corpuscular HGB 31.1 pg (26.0-34.0); Mean Corpuscular HGB Conc 32.9 g/dL (31.5-36.5); Mean Corpuscular Volume 94 fL (80-100); Mean Platelet Volume 10.4 fL (9.1-12.4); NEUTROPHILS ABSOLUTE AUTO 6.26 K/mm3 (1.96-9.15); NEUTROPHILS PERCENT AUTO 63 % (41-73); Platelet Count 263 K/mm3 (150-400); RDW Coefficient Variation 13.7 % (11.7-14.2); RDW Standard Deviation 47.5 fL (35.1-46.3); Red Blood Cell Count 3.57 M/mm3 (3.80-5.20); White Blood Cell Count 9.99 K/mm3 (4.00-11.30)
[2023-06-22 23:45] LABS: Source, Urine Clean Catch
[2023-06-22 23:49] LABS: Bilirubin, Urine Neg (Neg); Blood, Urine 2+ (Neg); Glucose Qualitative, Urine 4+ (Neg); Ketones, Urine Neg (Neg); Leukocyte Esterase, Urine 3+ (Neg); Nitrite, Urine Neg (Neg); Protein, Urine Neg (Neg); Urobilinogen, Urine NORM (Normal)
[2023-06-22 23:57] LABS: Albumin/Globulin Ratio 0.7 (0.8-1.8); Bilirubin, Total 0.5 mg/dL (0.1-1.0); Bun/Creatinine Ratio 17.9 (12.0-20.0); Calcium, Blood 8.2 mg/dL (8.5-10.1); Creatinine, Blood 1.12 mg/dL (0.40-1.00); Globulin, Blood 4.3 g/dL (2.2-4.0); Potassium, Blood 4.1 mmol/L (3.5-5.5); Total Protein, Blood 7.3 g/dL (6.4-8.2)
[2023-06-23 00:12] LABS: Appearance, Urine Hazy (Clear); Color, Urine Yellow (P-Yellow)
[2023-06-23 00:14] LABS: Bacteria Many /hpf; Red Blood Cells, Urine 0-2 /hpf (0-2); Squamous Epithelial Cells Few /hpf (Few); White Blood Cells, Urine 25-50 /hpf (0-5); Yeast/Fungi Urine Few /hpf
[2023-06-23 06:30] LABS: BASOPHILS ABSOLUTE AUTO 0.08 K/mm3 (0.00-0.23); BASOPHILS PERCENT AUTO 1 % (0-2); EOSINOPHILS ABSOLUTE AUTO 0.22 K/mm3 (0.00-0.68); EOSINOPHILS PERCENT AUTO 3 % (0-6); Hematocrit 34.5 % (33.0-51.0); Hemoglobin 11.7 g/dL (11.5-16.0); IMMATURE GRAN ABSOLUTE AUTO 0.05 K/mm3 (0.00-0.10); IMMATURE GRAN PERCENT AUTO 1 % (0-1); LYMPHOCYTES ABSOLUTE AUTO 1.75 K/mm3 (0.84-5.20); LYMPHOCYTES PERCENT AUTO 22 % (21-46); MONOCYTES ABSOLUTE AUTO 0.63 K/mm3 (0.16-1.47); MONOCYTES PERCENT AUTO 8 % (4-13); Mean Corpuscular HGB 31.7 pg (26.0-34.0); Mean Corpuscular HGB Conc 33.9 g/dL (31.5-36.5); Mean Corpuscular Volume 94 fL (80-100); Mean Platelet Volume 10.3 fL (9.1-12.4); NEUTROPHILS ABSOLUTE AUTO 5.41 K/mm3 (1.96-9.15); NEUTROPHILS PERCENT AUTO 67 % (41-73); Platelet Count 244 K/mm3 (150-400); RDW Coefficient Variation 13.9 % (11.7-14.2); RDW Standard Deviation 47.2 fL (35.1-46.3); Red Blood Cell Count 3.69 M/mm3 (3.80-5.20); White Blood Cell Count 8.14 K/mm3 (4.00-11.30)
[2023-06-23 06:51] LABS: Albumin, Blood 3.1 g/dL (3.4-5.0); Albumin/Globulin Ratio 0.7 (0.8-1.8); Bilirubin, Total 0.5 mg/dL (0.1-1.0); Bun/Creatinine Ratio 16.8 (12.0-20.0); Calcium, Blood 8.5 mg/dL (8.5-10.1); Creatinine, Blood 1.07 mg/dL (0.40-1.00); Globulin, Blood 4.5 g/dL (2.2-4.0); Potassium, Blood 4.1 mmol/L (3.5-5.5); Total Protein, Blood 7.6 g/dL (6.4-8.2)
[2023-06-23 13:19] VITALS: BP 147/79
[2023-06-23] MEDS ORDERED: ASCO500 PO (14:19)
[2023-06-23 15:48] VITALS: BP 135/80
--- NOTE | 2023-06-23 17:23 | NUR ---
LATE ENTRY PT ADMIT FROM ER. ALERT AND ORIENTED X4 FORGETFUL. CALM AND COOPERATIVE. NO AM MEDS THIS MORNING. DISCUSSED WITH DR. DEWITT AND PHARMACY, PLEASE SEE EMAR. DR. DEWITT WOULD LIKE TO GIVE LONG ACTING INSULIN NOW INSTEAD OF 2100. ALSO GIVE 5 UNITS LISPRO NOW TO COVER CBG 423. PT DID NOT RECIEVE INSULIN AND ATE LUNCH IN ER. PURWICK IN PLACE. PT DOES NOT FEEL SAFE ENOUGH TO WALK TODAY. BASELINE INDEPENDENT WITH FWW. PT ABLE TO STAND PIVOT FROM WHEELCHAIR TO BED.
--- NOTE | 2023-06-23 17:47 | NUR ---
PT CBG 370. COVERED WITH [address] CURRIE >350. CHECK CBG HS. NO NEW ORDERS.
[2023-06-23 19:53] VITALS: BP 109/61
--- NOTE | 2023-06-24 05:09 | NUR ---
PT A&O X4, FORGETFUL. PT REPORT OF SLEEPWALKING, BED ALARM IN PLACE THROUGH THE NIGHT. PT STAYED SAFELY IN BED AND SLEPT APROXIMATELY 5-[address] DUE TO INCREASED WEAKNESS. PT AMBULATES WITH WALKER AT BASLINE. cELLULITIS TO LOWER EXTREMITIES BILAT. WOUND CARE WILL BE EVALUATING PT FURTHER TODAY. 06/24/22 JERSON SANDERS RN
[2023-06-24 06:40] LABS: BASOPHILS ABSOLUTE AUTO 0.09 K/mm3 (0.00-0.23); BASOPHILS PERCENT AUTO 1 % (0-2); EOSINOPHILS ABSOLUTE AUTO 0.24 K/mm3 (0.00-0.68); EOSINOPHILS PERCENT AUTO 3 % (0-6); Hematocrit 35.5 % (33.0-51.0); Hemoglobin 11.5 g/dL (11.5-16.0); IMMATURE GRAN ABSOLUTE AUTO 0.07 K/mm3 (0.00-0.10); IMMATURE GRAN PERCENT AUTO 1 % (0-1); LYMPHOCYTES ABSOLUTE AUTO 2.09 K/mm3 (0.84-5.20); LYMPHOCYTES PERCENT AUTO 25 % (21-46); MONOCYTES ABSOLUTE AUTO 0.82 K/mm3 (0.16-1.47); MONOCYTES PERCENT AUTO 10 % (4-13); Mean Corpuscular HGB 31.3 pg (26.0-34.0); Mean Corpuscular HGB Conc 32.4 g/dL (31.5-36.5); Mean Corpuscular Volume 97 fL (80-100); Mean Platelet Volume 10.3 fL (9.1-12.4); NEUTROPHILS ABSOLUTE AUTO 5.08 K/mm3 (1.96-9.15); NEUTROPHILS PERCENT AUTO 61 % (41-73); Platelet Count 248 K/mm3 (150-400); RDW Coefficient Variation 14.1 % (11.7-14.2); RDW Standard Deviation 50.2 fL (35.1-46.3); Red Blood Cell Count 3.67 M/mm3 (3.80-5.20); White Blood Cell Count 8.39 K/mm3 (4.00-11.30)
[2023-06-24 07:05] LABS: Bun/Creatinine Ratio 14.9 (12.0-20.0); Calcium, Blood 8.2 mg/dL (8.5-10.1); Creatinine, Blood 1.41 mg/dL (0.40-1.00); Potassium, Blood 4.4 mmol/L (3.5-5.5)
[2023-06-24 07:21] VITALS: BP 120/76
--- NOTE | 2023-06-24 12:14 | NUR ---
CALLED DR MCKEON RE [facility] [place] [facility]. LOW SCALE.. HE MOVING TO MED SCALE.
[2023-06-24 15:54] VITALS: BP 126/73
--- NOTE | 2023-06-24 17:19 | NUR ---
PT PLEASANT THIS SHIFT. 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 REALLY ENJOYED JOB. REDNESS ON LEGS PRESENTS SOME LESS RED AND RETRACTED FRO PRIOR MARKINGS. DR UPPED ACHS SCALE TO MEDIUM. COUND ON L LEG IS CDI. DRESSING INTACT. PT 1 ASST TO CHAIR AND BACK TO BED. NO OTHER CONCERNS NOTED. SHEREEN IN LOW POSITION, CALL LITE IN REACH,, CALLS APPROP
[2023-06-24 19:52] VITALS: BP 114/62
[2023-06-25 03:40] VITALS: BP 119/70
--- NOTE | 2023-06-25 04:16 | NUR ---
PT AXO X4, PLEASANT THROUGHOUT SHIFT. PT UP IN CHAIR AND TOOK A SHORT WALK WITH WALKER AND STAND BY ASSIST TO THE HALLWAY THIS SHIFT. PT LEGS BILAT STILL SHOWING CELLULITIS EDEMA BUT THEY ARE SHOWING DECREASED REDNESS FROM PREVIOUS SKIN MARKINGS. PT DRESSING TO L LEG STILL INTACT. PT REPORTING PAIN IN LEGS AND MEDICATED FOR PAIN PER EMAR EFFECTIVELY. IV TO R FOREARM D/C'D DUE TO LEAKAGE AND PAIN AT IV SITE, PT TOLERATED REMOVAL WELL. BED ALARM SET THROUGH THE NIGHT DUE TO PT SELF REPORT OF SLEEPWALKING. PT SLEPT MOST OF THE NIGHT. 06/25/22 SD RN
[2023-06-25 05:37] LABS: BASOPHILS ABSOLUTE AUTO 0.09 K/mm3 (0.00-0.23); BASOPHILS PERCENT AUTO 1 % (0-2); EOSINOPHILS ABSOLUTE AUTO 0.29 K/mm3 (0.00-0.68); EOSINOPHILS PERCENT AUTO 3 % (0-6); Hematocrit 35.8 % (33.0-51.0); Hemoglobin 11.7 g/dL (11.5-16.0); IMMATURE GRAN ABSOLUTE AUTO 0.08 K/mm3 (0.00-0.10); IMMATURE GRAN PERCENT AUTO 1 % (0-1); LYMPHOCYTES ABSOLUTE AUTO 2.14 K/mm3 (0.84-5.20); LYMPHOCYTES PERCENT AUTO 24 % (21-46); MONOCYTES ABSOLUTE AUTO 0.72 K/mm3 (0.16-1.47); MONOCYTES PERCENT AUTO 8 % (4-13); Mean Corpuscular HGB 31.3 pg (26.0-34.0); Mean Corpuscular HGB Conc 32.7 g/dL (31.5-36.5); Mean Corpuscular Volume 96 fL (80-100); Mean Platelet Volume 10.2 fL (9.1-12.4); NEUTROPHILS ABSOLUTE AUTO 5.47 K/mm3 (1.96-9.15); NEUTROPHILS PERCENT AUTO 62 % (41-73); Platelet Count 235 K/mm3 (150-400); RDW Standard Deviation 49.2 fL (35.1-46.3); Red Blood Cell Count 3.74 M/mm3 (3.80-5.20); White Blood Cell Count 8.79 K/mm3 (4.00-11.30)
[2023-06-25 06:06] LABS: Bun/Creatinine Ratio 17.2 (12.0-20.0); C-REACTIVE PROTEIN, EXT RANGE 2.18 mg/dL (0.000-0.300); Calcium, Blood 8.2 mg/dL (8.5-10.1); Creatinine, Blood 1.45 mg/dL (0.40-1.00); Potassium, Blood 4.4 mmol/L (3.5-5.5)
[2023-06-25 07:14] VITALS: BP 118/68
--- NOTE | 2023-06-25 11:35 | NUR ---
SPOKE TO DR LINDA MELENDREZ ABD AND CLARK FOLDS RED , MICONOZOLE ORDERS GIVEN
[2023-06-25 16:05] VITALS: BP 120/71
--- NOTE | 2023-06-25 17:52 | NUR ---
PT PLEASANT TODAY. STATES PAIN MANAGED TO HER SATISFACTION WITH AVAIL MEDS. MARIA ESTHER MARION CAHNGED WOUND WRAP THIS AM. PRESENTLY CDI. SHE HAS BEEN UP TO CHAIR TODAY. DID INCREASE THE LONG ACTING INSULIN FOR TONITE. NO OTHER CONCERNS NOTED. BED IN LOW POSITION CALL LITE IN REACH, CALLS APPROP
[2023-06-25 19:51] VITALS: BP 137/75
[2023-06-26 03:56] VITALS: BP 90/78
--- NOTE | 2023-06-26 05:38 | NUR ---
PT SLEPT APPROX 3-4 HOURS THROUGH THE NIGHT. NO ACUTE CHANGES. PT MEDICATED WITH PAIN MEDS PER EMAR THROUGH THE NIGHT. LEG WOUNDS/REDNESS CONTINUES TO DECREASE. PT WAS PLEASANT AND COOPERATIVE THROUGH THE NIGHT. 06/26/22 JERSON SANDERS RN
[2023-06-26 05:44] LABS: BASOPHILS ABSOLUTE AUTO 0.12 K/mm3 (0.00-0.23); BASOPHILS PERCENT AUTO 1 % (0-2); EOSINOPHILS ABSOLUTE AUTO 0.36 K/mm3 (0.00-0.68); EOSINOPHILS PERCENT AUTO 4 % (0-6); Hematocrit 37.3 % (33.0-51.0); Hemoglobin 12.1 g/dL (11.5-16.0); IMMATURE GRAN PERCENT AUTO 1 % (0-1); LYMPHOCYTES ABSOLUTE AUTO 2.19 K/mm3 (0.84-5.20); LYMPHOCYTES PERCENT AUTO 23 % (21-46); MONOCYTES ABSOLUTE AUTO 0.83 K/mm3 (0.16-1.47); MONOCYTES PERCENT AUTO 9 % (4-13); Mean Corpuscular HGB 30.9 pg (26.0-34.0); Mean Corpuscular HGB Conc 32.4 g/dL (31.5-36.5); Mean Corpuscular Volume 95 fL (80-100); NEUTROPHILS ABSOLUTE AUTO 5.99 K/mm3 (1.96-9.15); NEUTROPHILS PERCENT AUTO 62 % (41-73); Platelet Count 252 K/mm3 (150-400); RDW Coefficient Variation 13.7 % (11.7-14.2); RDW Standard Deviation 47.8 fL (35.1-46.3); Red Blood Cell Count 3.91 M/mm3 (3.80-5.20); White Blood Cell Count 9.59 K/mm3 (4.00-11.30)
[2023-06-26 06:05] LABS: Bun/Creatinine Ratio 19.7 (12.0-20.0); C-REACTIVE PROTEIN, EXT RANGE 1.98 mg/dL (0.000-0.300); Calcium, Blood 8.7 mg/dL (8.5-10.1); Creatinine, Blood 1.22 mg/dL (0.40-1.00); Potassium, Blood 4.4 mmol/L (3.5-5.5)
[2023-06-26 07:21] VITALS: BP 116/65
--- NOTE | 2023-06-26 17:59 | NUR ---
SHIFT SUMMARY PT AOX4, FORGETFUL AT TIMES. MEDICATED FOR PAIN PER THE EMAR. NO OTHER COMPLAINTS. WOUND CHANGED COMPLETED BY THE WOUND CARE NURSE THIS SHIFT. PT TOLERATED IT WELL. PT UP TO THE CHAIR, A 1 ASSIST WITH THE FWW TO THE BR. SPOKE WITH HER CLOSE FRIENDS AT THE BS TODAY. CALL LIGHT WITHIN REACH, BED IN THE LOWEST POSITION. WILL REPORT TO ONCOMING NURSE.
[2023-06-26 19:51] VITALS: BP 105/65
--- NOTE | 2023-06-27 03:14 | NUR ---
STRETCHING MACHINE TENDER FRAME SUMAMRY VSS. IVF AND ANTIBIOTICS INFUSING ORDERED. PAIN MEDS FOR LEG PAIN ADMIN - SEE MAR FOR DETAILS. HAS BEEN RESTING QUIETLY WITH FEW INTERRUPTIONS. CALL LIGHT IN REACH. WILL CONTINUE TO MONITOR. DRESSING OF LEG CDI
[2023-06-27 03:21] VITALS: BP 125/67
[2023-06-27 07:09] VITALS: BP 105/69
[2023-06-27 08:57] VITALS: BP 108/65
[2023-06-27 16:25] VITALS: BP 92/58
--- NOTE | 2023-06-27 17:37 | NUR ---
SHIFT SUMMARY A&OX4, COOPERATIVE WITH CARE. SLEEPY T/O SHIFT. COMPLAINED OF PAIN TO LLE WOUND. MEDICATED PER EMAR PROTOCOL. HYPOTENSIVE AT 1630, ORDERS TO GIVE A 500ML BOLUS, CURRENTLY RUNNING. DENIED ANY CP/PRESSURE, HEADACHE, DIZZINESS, OR SOB. NONPRODUCTIVE COUGH NOTED. PUREWICK IN PLACE DUE TO PATIENT FEELING WEAK AND LETHARGIC. CURRENTLY LAYING IN BED RESTING. BED IN THE LOWEST POSITION. CALL LIGHT WITHIN REACH.
[2023-06-27 19:50] VITALS: BP 97/52
[2023-06-28 05:22] LABS: BASOPHILS PERCENT AUTO 1 % (0-2); EOSINOPHILS ABSOLUTE AUTO 0.31 K/mm3 (0.00-0.68); EOSINOPHILS PERCENT AUTO 4 % (0-6); Hematocrit 35.8 % (33.0-51.0); Hemoglobin 11.5 g/dL (11.5-16.0); IMMATURE GRAN ABSOLUTE AUTO 0.12 K/mm3 (0.00-0.10); IMMATURE GRAN PERCENT AUTO 1 % (0-1); LYMPHOCYTES ABSOLUTE AUTO 2.25 K/mm3 (0.84-5.20); LYMPHOCYTES PERCENT AUTO 26 % (21-46); MONOCYTES ABSOLUTE AUTO 0.78 K/mm3 (0.16-1.47); MONOCYTES PERCENT AUTO 9 % (4-13); Mean Corpuscular HGB 31.1 pg (26.0-34.0); Mean Corpuscular HGB Conc 32.1 g/dL (31.5-36.5); Mean Corpuscular Volume 97 fL (80-100); Mean Platelet Volume 10.3 fL (9.1-12.4); NEUTROPHILS ABSOLUTE AUTO 4.98 K/mm3 (1.96-9.15); NEUTROPHILS PERCENT AUTO 58 % (41-73); Platelet Count 240 K/mm3 (150-400); RDW Standard Deviation 50.1 fL (35.1-46.3); White Blood Cell Count 8.54 K/mm3 (4.00-11.30)
--- NOTE | 2023-06-28 05:22 | NUR ---
SHIFT SUMMARY PT A&OX4. MEDICATED PER EMAR FOR PAIN WITH GOOD EFFECT. CONTINUING ABX PER MD ORDERS. VSS BUT BP ON THE SOFT SIDE. MIDODRINE ADMINISTERED PER EMAR. INSULINE GLARGINE GIVEN AT HS PER EMAR. PT ABLE TO SLEEP MOST OF NIGHT. BED ALARM ON. BED IN LOWEST POSITION AND CALL LIGHT IN REACH.
[2023-06-28 05:37] VITALS: BP 105/65
[2023-06-28 06:44] LABS: Albumin, Blood 2.6 g/dL (3.4-5.0); Anion Gap 6 mmol/L (6-16); Blood Urea Nitrogen 26 mg/dL (8-24); Bun/Creatinine Ratio 20.3 (12.0-20.0); CO2, Blood 24 mmol/L (21-32); Calcium, Blood 8.2 mg/dL (8.5-10.1); Chloride, Blood 105 mmol/L (98-108); Creatinine, Blood 1.28 mg/dL (0.40-1.00); Glomerular Filtration Rate 43 (60-); Glucose, Blood 253 mg/dL (70-99); Phosphorus, Blood 3.4 mg/dL (2.5-4.9); Potassium, Blood 4.4 mmol/L (3.5-5.5); Sodium, Blood 135 mmol/L (136-145)
[2023-06-28 07:24] VITALS: BP 95/60
[2023-06-28 13:14] VITALS: BP 102/65
[2023-06-28 15:17] VITALS: BP 125/80
--- NOTE | 2023-06-28 15:25 | NUR ---
WOUND CARE LLE WOUND DRESSING CHANGED PER ORDER. PT TOLERATED WELL. PLAN TO MICHELLE NEELY TOMORROW. NEW PHOTO AND ASSESSMENT IN HARD CHART
--- NOTE | 2023-06-28 18:13 | NUR ---
Initial palliative care consult: Vesna is a 78 year old who was admitted with BLE cellulitis on 06/23/23. She has a history of DM type 2, neuropathy, LE wounds, chronic DVT and multiple myloma. Vesna is awake in her room this afternoon. She reports her LLE has pain 2-3/10. She states she was recently medicated for pain. She is A/O x 3 currently although she states some days her dementia is better, sometimes worse. She reports that she has "sundowners at night" and states that she sleep walks sometimes outside at night. Appetite is good, CBGs are elevated, no nausea. Reports neuropathy to hands and feet which is chronic. She also states she has restless legs. Vesna reports she lives [place]" with her friend Jill and Jill's son. She states she has her own little cottage right near Jill's house. She tells this commercial insurance underwriter that she doesn't feel safe in her cottage because she recognizes that she can no longer care for herself. Sometimes she forgets where she is, how to do things and can't remember if she took her medications or not. She tells this commercial insurance underwriter that she isn't able to live alone anymore and that she needs to go into some type of care facility where she will get the care she needs. Vesna reports that she doesn't want to burden Jill with her increasing care needs. Shes report her friend and decision maker is Jill, whom she has known for 40 years. Vesna is and has no children. Jill is not a blood relative but she is the only family Vesna says that she has. Vesna states that Jill helps her make medical decisions. Vesna confirms her full code status. As this commercial insurance underwriter was leaving her room, Jill called to talk to Vesna. Vesna requested that this commercial insurance underwriter speak with Jill on the phone. Jill reports that Vesna's health has declined and care needs have increased dramatically over the past year and a half. Jill reports that Vesna moved out of her own place into the cottage near Jill's house so that she is only about 20 feet away. Jill states she checks in on Vesna frequently during the day but reports that she can't stay up all night to check on her through the night. Jill reports Vesna is incontinent of mostly bladder and sometimes bowel. Jill reports that she and her son will need to remove the floor and subfloor from the cottage Vesna was staying in because of the incontinence and the smell. Jill also reports that Vesna hoards trash and food will go bad in her refrigerator. Jill tells this commercial insurance underwriter she loves her friend kelsi but can't take care of her as she has her own medical issues. Jill is willing to assist Vesna in getting the medicaid process going and help with placement. She made several calls to [employer] today that were not returned. Jill also stated that Vesna told her someone came from [employer] to check on the house but no one was around. Jill is requesting help with communicating with [employer]. Jill reports that she worked with Hilaria, social and political studies professor at [facility] over a year ago and requests that this commercial insurance underwriter contact Hilaria for assistance. OLIVIA for [employer] for Angela DE LEON RN and Hilaria, social and political studies professor to follow up with Jill and Vesna. PC to continue to follow for advanced care planning and symptom management prn.
--- NOTE | 2023-06-28 19:31 | NUR ---
PT IS A/OX4, PLEASANT AND COOPERATIVE. THE PT IS UP WITH MINIMAL ASSIST TO THE CHAIR. THE PT APPEARS TO BE BREATHING EASILY AT REST. RUBBER TURNER ANNEMARIE REDRESSED THE PT WOUND THIS AM THE PT WAS MEDICATED FOR PAIN X2 TODAY AND FOR RESTLESS LEGS X1. CALL LIGHT IN REACH. BED IN THE LOW POSITION
[2023-06-28 19:49] VITALS: BP 109/70
[2023-06-29 05:16] VITALS: BP 121/82
--- NOTE | 2023-06-29 05:53 | NUR ---
SHIFT SUMMARY PT A&OX4 AND PLEASANT. PT C/O PAIN AND MEDICATED PER EMAR WITH GOOD EFFECT. CONTINUING IV ABX PER MD ORDER. VSS, HOWEVER BP REAMINS SOFT BUT IMPROVED FROM YESTERDAY. BLOOD GLUCOSE ELEVATED SO HUMALOG AND GLARGINE GIVEN PER EMAR AT HS. DRESSINGS ON LEFT LOWER LEG REAMIN C/D/I. PT CALLS APPROPRIATELY. BED ALARM ON. BED IN LOWEST POSITION AND CALL LIGHT IN REACH.
[2023-06-29 06:11] LABS: BASOPHILS ABSOLUTE AUTO 0.08 K/mm3 (0.00-0.23); BASOPHILS PERCENT AUTO 1 % (0-2); EOSINOPHILS ABSOLUTE AUTO 0.26 K/mm3 (0.00-0.68); EOSINOPHILS PERCENT AUTO 3 % (0-6); Hematocrit 37.8 % (33.0-51.0); Hemoglobin 12.1 g/dL (11.5-16.0); IMMATURE GRAN PERCENT AUTO 1 % (0-1); LYMPHOCYTES ABSOLUTE AUTO 2.53 K/mm3 (0.84-5.20); LYMPHOCYTES PERCENT AUTO 31 % (21-46); MONOCYTES ABSOLUTE AUTO 0.74 K/mm3 (0.16-1.47); MONOCYTES PERCENT AUTO 9 % (4-13); Mean Corpuscular HGB 31.2 pg (26.0-34.0); Mean Corpuscular Volume 97 fL (80-100); Mean Platelet Volume 10.3 fL (9.1-12.4); NEUTROPHILS ABSOLUTE AUTO 4.55 K/mm3 (1.96-9.15); NEUTROPHILS PERCENT AUTO 55 % (41-73); Platelet Count 247 K/mm3 (150-400); Red Blood Cell Count 3.88 M/mm3 (3.80-5.20); White Blood Cell Count 8.26 K/mm3 (4.00-11.30)
[2023-06-29 06:32] LABS: Albumin, Blood 2.8 g/dL (3.4-5.0); Anion Gap 5 mmol/L (6-16); Blood Urea Nitrogen 20 mg/dL (8-24); Bun/Creatinine Ratio 16.9 (12.0-20.0); CO2, Blood 26 mmol/L (21-32); Calcium, Blood 8.3 mg/dL (8.5-10.1); Chloride, Blood 106 mmol/L (98-108); Creatinine, Blood 1.18 mg/dL (0.40-1.00); Glomerular Filtration Rate 48 (60-); Glucose, Blood 218 mg/dL (70-99); Phosphorus, Blood 3.1 mg/dL (2.5-4.9); Potassium, Blood 4.5 mmol/L (3.5-5.5); Sodium, Blood 137 mmol/L (136-145)
[2023-06-29 07:24] VITALS: BP 104/68
--- NOTE | 2023-06-29 13:41 | NUR ---
WOUND CARE DC DAKINS WET TO DRY. LLE EXTREMITY WOUNDS CLEANSED WITH NS AND GAUZE, CALCIUM ALGINATE TO WOUND BED COVERED WITH EXU-DRY, ROLLED GAUZE, STOCKINGETTE. NEXT DRESSING CHANGE MONDAY. PT TOLERATED WELL
[2023-06-29 15:45] VITALS: BP 115/73
--- NOTE | 2023-06-29 16:40 | NUR ---
PT AOX4 AND COOPERATIVE OF CARE. NO DISTRESS NOTED. PT HAS BEEN DOING WELL AND WAS UP TO RESTROOM AND AMBULATED OUT IN RUDD WITH 1 PERSON ASSIST AND WALKER. ABLE TO MAKE NEEDS KNOWN. LE PAIN TREATED PER EMAR. WOUND CARE NURSE CHANGED WOUND BANDAGE. CALL LIGHT WITHIN REACH WILL CONTINUE TO MONITOR.
[2023-06-29 20:09] VITALS: BP 131/72
[2023-06-30 04:43] VITALS: BP 129/77
[2023-06-30 05:01] LABS: BASOPHILS PERCENT AUTO 1 % (0-2); EOSINOPHILS ABSOLUTE AUTO 0.23 K/mm3 (0.00-0.68); EOSINOPHILS PERCENT AUTO 3 % (0-6); Hematocrit 36.6 % (33.0-51.0); Hemoglobin 11.8 g/dL (11.5-16.0); IMMATURE GRAN ABSOLUTE AUTO 0.06 K/mm3 (0.00-0.10); IMMATURE GRAN PERCENT AUTO 1 % (0-1); LYMPHOCYTES ABSOLUTE AUTO 2.14 K/mm3 (0.84-5.20); LYMPHOCYTES PERCENT AUTO 28 % (21-46); MONOCYTES ABSOLUTE AUTO 0.77 K/mm3 (0.16-1.47); MONOCYTES PERCENT AUTO 10 % (4-13); Mean Corpuscular HGB 31.1 pg (26.0-34.0); Mean Corpuscular HGB Conc 32.2 g/dL (31.5-36.5); Mean Corpuscular Volume 97 fL (80-100); NEUTROPHILS ABSOLUTE AUTO 4.48 K/mm3 (1.96-9.15); NEUTROPHILS PERCENT AUTO 58 % (41-73); Platelet Count 239 K/mm3 (150-400); RDW Coefficient Variation 13.9 % (11.7-14.2); RDW Standard Deviation 49.8 fL (35.1-46.3); Red Blood Cell Count 3.79 M/mm3 (3.80-5.20); White Blood Cell Count 7.78 K/mm3 (4.00-11.30)
[2023-06-30 05:35] LABS: Albumin, Blood 2.7 g/dL (3.4-5.0); Anion Gap 3 mmol/L (6-16); Blood Urea Nitrogen 17 mg/dL (8-24); Bun/Creatinine Ratio 16.3 (12.0-20.0); CO2, Blood 27 mmol/L (21-32); Calcium, Blood 8.5 mg/dL (8.5-10.1); Chloride, Blood 107 mmol/L (98-108); Creatinine, Blood 1.04 mg/dL (0.40-1.00); Glomerular Filtration Rate 55 (60-); Glucose, Blood 226 mg/dL (70-99); Phosphorus, Blood 3.2 mg/dL (2.5-4.9); Potassium, Blood 4.2 mmol/L (3.5-5.5); Sodium, Blood 137 mmol/L (136-145)
--- NOTE | 2023-06-30 06:55 | NUR ---
RN summary: Pt is alert and oriented. Patient here for LLE wound. DRSG was changed on dayshift, remains clean, dry and intact. Lungs are diminished. Pt has a breakdown to upper gluteal crack. cream applied then mepilex by assisting RN. Pt is using purwick with yellow urine. Patient had restless leg syndrome acting up, increased discomfort, needed norco 1 tab for bertha 6/10. Pt had good relief. Pt call light in reach. Has rested well this shift.
[2023-06-30 07:48] VITALS: BP 124/74
--- NOTE | 2023-06-30 15:01 | NUR ---
SHIFT SUMMARY PT AWAKE DURING SHIFT REPORT, RESTING QUIETLY IN BED. VISITORS TO THIS AM, THEN DR CORONEL IN LATER TO DISCUSS PLAN OF CARE. DR CORONEL TO CHANGE IV MEDS TO PO AND PT TO D/C TO HOME TOMORROW. DRGS TO LLE REMOVED BY DR CORONEL IN ORDER TO ASSESS WOUNDS AND THEN REPLACED BY DR CORONEL. PT TO F/U WITH WOUND CLINIC AT D/C. PT VERBALIZED CONCERN AT CONSTANT URINARY INCONTINENCE AND DIFFICULTY GETTING TO APPOINTMENTS FOR WOUND DRSG CHANGES. PABON CATH TO BE PLACED AND LEFT IN AT D/C. PT UP TO SHOWER THIS AFTERNOON WITH ASSIST FROM [facility]. LINENS CHANGED WELL. MEDICATED X1 FOR C/O PAIN TO LEGS. DENIED FURTHER NEEDS AT THIS TIME. CALL LT IN REACH.
[2023-06-30 16:08] VITALS: BP 122/78
[2023-06-30 20:02] VITALS: BP 129/82
[2023-07-01 04:34] VITALS: BP 129/83
--- NOTE | 2023-07-01 04:41 | NUR ---
SHIFT SUMMARY 78 YR F ADMITTED ON 06/24/23. FULL CODE. NO ACUTE CHANGES THIS SHIFT. PT DID NOT EXPRESS NEED FOR PABON THIS SHIFT AND DID NOT HAVE ANY INCONTINENT EPISODES THIS SHIFT. SHE CALLED FOR ASSISTANCE WHEN SHE NEEDED TO USE THE BATHROOM AND HAD A BM AND VOIDED IN THE TOILET. PT WAS EDUCATED ON ADMINISTERING HER OWN INSULIN AND DID IT HERSELF UNDER THE SUPERVISION OF RN. SHE DID WELL BUT PULLED THE NEEDLE OUT TOO FAST AND LOST A SMALL AMOUNT OF THE INSULIN. SHE WAS EDUCATED FURTHER ON THE IMPORTANCE OF HOLDING THE NEEDLE IN PLEACE FOR AT LEAST 20 SECONDS AFTER ADMINISTERING INSULIN TO GIVE IT TIME TO ABSORB. PT STATED THAT SHE UNDERSTOOD.
[2023-07-01 05:23] LABS: BASOPHILS PERCENT AUTO 1 % (0-2); EOSINOPHILS ABSOLUTE AUTO 0.22 K/mm3 (0.00-0.68); EOSINOPHILS PERCENT AUTO 3 % (0-6); Hematocrit 36.9 % (33.0-51.0); Hemoglobin 11.9 g/dL (11.5-16.0); IMMATURE GRAN ABSOLUTE AUTO 0.06 K/mm3 (0.00-0.10); IMMATURE GRAN PERCENT AUTO 1 % (0-1); LYMPHOCYTES ABSOLUTE AUTO 2.25 K/mm3 (0.84-5.20); LYMPHOCYTES PERCENT AUTO 29 % (21-46); MONOCYTES PERCENT AUTO 10 % (4-13); Mean Corpuscular HGB 31.2 pg (26.0-34.0); Mean Corpuscular HGB Conc 32.2 g/dL (31.5-36.5); Mean Corpuscular Volume 97 fL (80-100); Mean Platelet Volume 9.9 fL (9.1-12.4); NEUTROPHILS ABSOLUTE AUTO 4.35 K/mm3 (1.96-9.15); NEUTROPHILS PERCENT AUTO 56 % (41-73); Platelet Count 244 K/mm3 (150-400); RDW Coefficient Variation 13.9 % (11.7-14.2); RDW Standard Deviation 49.6 fL (35.1-46.3); Red Blood Cell Count 3.82 M/mm3 (3.80-5.20); White Blood Cell Count 7.78 K/mm3 (4.00-11.30)
[2023-07-01 07:43] VITALS: BP 127/76
[2023-07-01] MEDS ORDERED: ELIQUIS2.5 MG PO (13:23)
[2023-07-01] MEDS ORDERED: ACET325 PO (13:23)
[2023-07-01] MEDS ORDERED: INSULANI SC (13:24)
[2023-07-01] MEDS ORDERED: MIDO5 PO (13:26)
[2023-07-01] MEDS ORDERED: LEVO750 PO (13:26)
[2023-07-01] MEDS ORDERED: VISBIOME 112.51 EACH PO (13:27)
--- NOTE | 2023-07-01 14:41 | NUR ---
SHIFT/DISCHARGE SUMMARY Pt remains A&Ox3 this shift. VSS. Resp even nonlabored on RA. Up with fww ast. Declines indwelling yu. BM last pm. Teaching of administration of insulin provided with return demonstration from pt. Wound care to LLE completed as ordered. All discharge instructions reviewed with emphasis on importance of taking medications as ordered. Pt to lobby via wc to meet friend to drive her home.
== END 2023-07-01 14:54 | disposition home health service (06) | DRG 638 ==
LOC: ER 20:06 → ERHOLD 20:07 → MEDS 06-23 13:12 → ENPENDDIS 07-01 12:48 → MEDS 07-01 14:54
PROVIDERS: Family Medicine; Internal Medicine; Physician Assistant; ADMIT Student in an Organized Health Care Education/Training Program
DX: E11.628 Type 2 diabetes mellitus with other skin complications (principal); L03.116 Cellulitis of left lower limb; N39.0 Urinary tract infection, site not specified; Z16.11 Resistance to penicillins; I12.9 Hypertensive chronic kidney disease with stage 1 through stage 4 chronic kidney disease, or unspecified chronic kidney disease; E11.22 Type 2 diabetes mellitus with diabetic chronic kidney disease; N18.30 Chronic kidney disease, stage 3 unspecified; E03.9 Hypothyroidism, unspecified; M51.9 Unspecified thoracic, thoracolumbar and lumbosacral intervertebral disc disorder; L97.529 Non-pressure chronic ulcer of other part of left foot with unspecified severity; L97.519 Non-pressure chronic ulcer of other part of right foot with unspecified severity; I87.8 Other specified disorders of veins; B96.89 Other specified bacterial agents as the cause of diseases classified elsewhere; B96.1 Klebsiella pneumoniae [K. pneumoniae] as the cause of diseases classified elsewhere; E11.65 Type 2 diabetes mellitus with hyperglycemia; I82.513 Chronic embolism and thrombosis of femoral vein, bilateral; I82.533 Chronic embolism and thrombosis of popliteal vein, bilateral; N17.9 Acute kidney failure, unspecified; B95.1 Streptococcus, group B, as the cause of diseases classified elsewhere; E11.40 Type 2 diabetes mellitus with diabetic neuropathy, unspecified; Z79.4 Long term (current) use of insulin; Z79.890 Hormone replacement therapy
CPT/HCPCS: 36415; 73590; 80048; 80053; 80069; 81001; 82570; 82947; 83036; 83735; 84300; 84540; 85025; 85651; 86140; 87040; 87070; 87075; 87077; 87086; 87147; 87186; 87205; 93005; 93010; 93970; 96365; 96366; 96367; 96375; 97110; 97116; 97161; 97530; 99285-25; A9270; G0378; J0690; J1815; J1956; J7040; J7050

== ENCOUNTER 2023-11-22 08:20 | Inpatient (IN) | payer OTHER ==
[~2023-11-22] VITALS: Ht 165.1 cm; Wt 129.9 kg
[~2023-11-22 08:20] MED LIST changes: +ACET325 PO; +ASCO500 PO; +ELIQUIS2.5 MG PO; +INSULANI SC; +LEVO750 PO; +MIDO5 PO
[2023-11-22 08:54] LABS: Base Excess Venous -1.6 mmol/L; Bicarbonate Venous 22.1 mmol/L (24.0-30.0); PCO2 Venous 51.2 mmHg (38-42)
[2023-11-22 09:00] LABS: BASOPHILS ABSOLUTE AUTO 0.08 K/mm3 (0.00-0.23); BASOPHILS PERCENT AUTO 1 % (0-2); EOSINOPHILS ABSOLUTE AUTO 0.22 K/mm3 (0.00-0.68); EOSINOPHILS PERCENT AUTO 3 % (0-6); Hematocrit 38.1 % (33.0-51.0); Hemoglobin 12.3 g/dL (11.5-16.0); IMMATURE GRAN ABSOLUTE AUTO 0.06 K/mm3 (0.00-0.10); IMMATURE GRAN PERCENT AUTO 1 % (0-1); LYMPHOCYTES ABSOLUTE AUTO 1.34 K/mm3 (0.84-5.20); LYMPHOCYTES PERCENT AUTO 16 % (21-46); MONOCYTES ABSOLUTE AUTO 0.57 K/mm3 (0.16-1.47); MONOCYTES PERCENT AUTO 7 % (4-13); Mean Corpuscular HGB 31.3 pg (26.0-34.0); Mean Corpuscular HGB Conc 32.3 g/dL (31.5-36.5); Mean Corpuscular Volume 97 fL (80-100); Mean Platelet Volume 10.4 fL (9.1-12.4); NEUTROPHILS ABSOLUTE AUTO 5.99 K/mm3 (1.96-9.15); NEUTROPHILS PERCENT AUTO 73 % (41-73); Platelet Count 188 K/mm3 (150-400); RDW Coefficient Variation 14.1 % (11.7-14.2); RDW Standard Deviation 50.5 fL (35.1-46.3); Red Blood Cell Count 3.93 M/mm3 (3.80-5.20); White Blood Cell Count 8.26 K/mm3 (4.00-11.30)
[2023-11-22 09:10] LABS: Source, Urine Clean Catch
[2023-11-22 09:15] LABS: Appearance, Urine Clear (Clear); Bilirubin, Urine Neg (Neg); Blood, Urine Neg (Neg); Color, Urine Yellow (P-Yellow); Glucose Qualitative, Urine 4+ (Neg); Ketones, Urine 1+ (Neg); Leukocyte Esterase, Urine 1+ (Neg); Nitrite, Urine Neg (Neg); Protein, Urine Neg (Neg); Urobilinogen, Urine NORM (Normal)
[2023-11-22 09:28] LABS: Bacteria Many /hpf; Red Blood Cells, Urine Not Seen /hpf (0-2); Squamous Epithelial Cells Rare /hpf (Few); Yeast/Fungi Urine Rare /hpf
[2023-11-22 09:35] LABS: Albumin, Blood 3.2 g/dL (3.4-5.0); Albumin/Globulin Ratio 0.7 (0.8-1.8); Bilirubin, Total 0.8 mg/dL (0.1-1.0); Bun/Creatinine Ratio 14.7 (12.0-20.0); Calcium, Blood 8.6 mg/dL (8.5-10.1); Creatinine, Blood 1.16 mg/dL (0.40-1.00); Globulin, Blood 4.4 g/dL (2.2-4.0); Potassium, Blood 4.1 mmol/L (3.5-5.5); Total Protein, Blood 7.6 g/dL (6.4-8.2)
[2023-11-22] MEDS ORDERED: NS 1,000 ML IV SCH (09:45)
[2023-11-22] MEDS ORDERED: CeFAZolin Sodium 1,000 MG in NS 50 ML IV ONE (09:50)
[2023-11-22] MEDS ORDERED: Ondansetron HCl 2 MG / ML 2ML Vial IV ONE (11:45)
[2023-11-22 14:03] LABS: Bun/Creatinine Ratio 16.1 (12.0-20.0); Calcium, Blood 8.5 mg/dL (8.5-10.1); Creatinine, Blood 1.12 mg/dL (0.40-1.00); Potassium, Blood 4.1 mmol/L (3.5-5.5)
[2023-11-22] MEDS ORDERED: Norco 5-325 Ta1 EACH PO (15:30)
[2023-11-22 15:50] VITALS: BP 146/82
[2023-11-22] MEDS ORDERED: Enoxaparin 120 MG/0.8 ML SYR SC SCH (16:00)
[2023-11-22] MEDS ORDERED: CefTRIAXone Sodium 1,000 MG in NS 100 ML IV SCH (16:00)
[2023-11-22] MEDS ORDERED: Insulin Regular 100 UNIT/ML 10ML Vial SC SCH (16:30)
--- NOTE | 2023-11-22 17:24 | NUR ---
arrival to pcu/shift summary patient arrived to pcu at 1510 and transfered to pcu bed via slider sheet. patient is alert and oriented x4. neuro is intact. perrla. patient is able to make needs known. vital signs stable. tele sinus rhythm 90s. denies chest pain/pressure, pain or shortness of breath. patient did have pain while doing wound care on left lower extremity, pictures in the cart, and pain went away when no longer touching the wound. mrsa cultures sent off. see admit shift assessment for further history. med rec is complete, but patient hasn't taken home medications in months. ir consult called to answering service. plan of care is up to date at this time. latest blood sugar is 444.
[2023-11-22 17:44] LABS: Free Thyroxine 1.02 ng/dL (0.70-1.60)
[2023-11-22 17:45] LABS: Thyroid Stimulating Hormone 1.29 uIU/mL (0.360-4.800)
[2023-11-22] MEDS ORDERED: NS 500 ML IV SCH (18:00)
[2023-11-22] MEDS ORDERED: Gabapentin 300 MG Cap PO SCH (21:00)
[2023-11-22] MEDS ORDERED: Lactobacil 2-S.Thermo-Bifido 1 1 Cap PO SCH (21:00)
[2023-11-22] MEDS ORDERED: Insulin Glargine-Yfgn 100 Unit/mL 3 ML SYR SC SCH (21:00)
[2023-11-22] MEDS ORDERED: rOPINIRole HCl 2 MG Tab PO SCH (21:00)
[2023-11-22 21:07] VITALS: BP 147/76
[2023-11-22 23:08] VITALS: BP 121/66
[2023-11-22] MEDS ORDERED: Insulin Regular 100 UNIT/ML 10ML Vial SC ONE (23:45)
[2023-11-23 03:31] VITALS: BP 124/80
[2023-11-23] MEDS ORDERED: Levothyroxine Sodium 0.075 MG Tab PO SCH (06:00)
[2023-11-23] MEDS ORDERED: Enoxaparin 120 MG/0.8 ML SYR SC SCH (06:00)
--- NOTE | 2023-11-23 06:23 | NUR ---
SHIFT SUMMARY PATIENT ALERT AND ORIENTED X4. HAD NO COMPLAINTS OF PAIN OR SHORTNESS OF BREATH. BLOOD SUGARS CONTINUE TO BE ELEVATED, A ONE TIME DOSE OF 10 UNITS HUMULIN R ADMINISTERED PER OSORIO MTZ RECENT BLOOD SUGAR WAS 316. PATIENT IS ON ROOM AIR WITH SPO2 >90%. VITAL SIGNS STABLE, SINUS RHYTHM ON TELE. WILL CONTINUE TO MONITOR. CALL LIGHT WITHIN REACH.
[2023-11-23 07:00] VITALS: BP 128/81
[2023-11-23] MEDS ORDERED: rOPINIRole HCl 2 MG Tab PO SCH (09:00)
[2023-11-23] MEDS ORDERED: Lisinopril 10 MG Tab PO SCH (09:00)
[2023-11-23] MEDS ORDERED: Enoxaparin 30 MG/0.3 ML SYR SC SCH (09:00)
--- NOTE | 2023-11-23 09:29 | NUR ---
am note this rn assumed care at 0700. vital signs stable. tele sinus rhythm 80s. spo2 >90% on room air. patient is alert and oriented x4. neuro is intact. perrla. patient is able to make needs known and uses call light appropriately. denies pain, chest pain/pressure or shortness of breath. see shift assessment for further detials. wound care done. bed bath and linen change done. medical status no tele.
[2023-11-23 11:34] VITALS: BP 110/67
[2023-11-23] MEDS ORDERED: Acetaminophen 325 MG TABLET PO PRN (12:50)
--- NOTE | 2023-11-23 12:51 | NUR ---
update md monroe in to see patient and discussed going in and looking at her left lower leg. patient signed consent and plan for this evening to do procedure.
[2023-11-23 17:02] VITALS: BP 105/66
[2023-11-23] MEDS ORDERED: Insulin Regular 100 UNIT/ML 10ML Vial SC SCH ×2 (18:00→21:00)
--- NOTE | 2023-11-23 18:34 | NUR ---
shift summary md monroe unable to do the angio today and will not be back till monday, and said if patient is discharged before monday to follow up as an out patient with IR. md hargrove updated. switched to medical status without tele. no acute changes. vital signs remain stable
[2023-11-23] MEDS ORDERED: Insulin Glargine-Yfgn 100 Unit/mL 3 ML SYR SC SCH (21:00)
[2023-11-23] MEDS ORDERED: Apixaban 5 MG Tab PO SCH (21:00)
[2023-11-23 21:33] VITALS: BP 111/63
--- NOTE | 2023-11-23 21:49 | NUR ---
PHYSICIAN COMMUNICATION CONTACTED DR RUEDA TO NOTIFY HER THAT THE PATIENT'S BLOOD SUGAR WAS 370 AND WAS MEDICATED WITH 6 UNITS HUMULIN R AND 40 UNITS OF GLARGINE PER EMAR. DR RUEDA SAID TO RECHECK THE BLOOD GLUCOSE IN A COUPLE HOURS AND IF THE RESULT IS GREATER THAN 300 THEN GIVE 10 UNITS OF HUMULIN R.
[2023-11-24 00:13] VITALS: BP 97/63
[2023-11-24 03:54] VITALS: BP 112/68
[2023-11-24 04:18] LABS: BASOPHILS ABSOLUTE AUTO 0.11 K/mm3 (0.00-0.23); BASOPHILS PERCENT AUTO 1 % (0-2); EOSINOPHILS ABSOLUTE AUTO 0.33 K/mm3 (0.00-0.68); EOSINOPHILS PERCENT AUTO 4 % (0-6); Hematocrit 35.8 % (33.0-51.0); Hemoglobin 11.8 g/dL (11.5-16.0); IMMATURE GRAN ABSOLUTE AUTO 0.09 K/mm3 (0.00-0.10); IMMATURE GRAN PERCENT AUTO 1 % (0-1); LYMPHOCYTES ABSOLUTE AUTO 2.34 K/mm3 (0.84-5.20); LYMPHOCYTES PERCENT AUTO 27 % (21-46); MONOCYTES ABSOLUTE AUTO 0.92 K/mm3 (0.16-1.47); MONOCYTES PERCENT AUTO 11 % (4-13); Mean Corpuscular HGB 31.8 pg (26.0-34.0); Mean Corpuscular Volume 97 fL (80-100); Mean Platelet Volume 10.4 fL (9.1-12.4); NEUTROPHILS ABSOLUTE AUTO 4.75 K/mm3 (1.96-9.15); NEUTROPHILS PERCENT AUTO 56 % (41-73); Platelet Count 195 K/mm3 (150-400); RDW Coefficient Variation 14.5 % (11.7-14.2); RDW Standard Deviation 50.7 fL (35.1-46.3); Red Blood Cell Count 3.71 M/mm3 (3.80-5.20); White Blood Cell Count 8.54 K/mm3 (4.00-11.30)
[2023-11-24 04:42] LABS: Bun/Creatinine Ratio 16.8 (12.0-20.0); Calcium, Blood 8.2 mg/dL (8.5-10.1); Creatinine, Blood 1.19 mg/dL (0.40-1.00); Potassium, Blood 3.9 mmol/L (3.5-5.5)
--- NOTE | 2023-11-24 06:37 | NUR ---
SHIFT SUMMARY PATIENT ALERT AND ORIENTED X4. HAD NO COMPLAINTS OF PAIN OR SHORTNESS OF BREATH. ON ROOM AIR WITH SPO2 >90%. VITAL SIGNS STABLE, SINUS RHYTHM ON TELE. NO ACUTE ISSUES NOTED OVERNIGHT. WILL CONTINUE TO MONITOR. CALL LIGHT WITHIN REACH.
[2023-11-24 07:46] VITALS: BP 104/63
[2023-11-24] MEDS ORDERED: GlipiZIDE 5 MG TabCR PO SCH (08:00)
--- NOTE | 2023-11-24 08:15 | NUR ---
Pt refused requip this am; states "it is a horrible drug" and that she has been off of it, would like not to take it. Also refused her lisinopril, would like to discuss it with her doctor this morning due to concerns of lower blood pressure. This morning b/p was 104/63.
--- NOTE | 2023-11-24 11:41 | NUR ---
am note this rn assumed care at 0700. vital signs stable. medical no tele. patient is alert and oriented x4. neuro is intact. perrla. denies chest pain/pressure, pain or shortness of breath. see shift assessment for further detials. yu cath placed per md hargrove for chronic use due to incontience and prevention of going to appointments. plan is for home health to manage catheter and wound. yu cath placed yellow urine draining to gravity.
[2023-11-24 11:48] LABS: Source, Urine Foley catheter
[2023-11-24 11:57] LABS: Bilirubin, Urine Neg (Neg); Blood, Urine Neg (Neg); Glucose Qualitative, Urine 4+ (Neg); Ketones, Urine Neg (Neg); Leukocyte Esterase, Urine Neg (Neg); Nitrite, Urine Neg (Neg); Protein, Urine Neg (Neg); Urobilinogen, Urine NORM (Normal)
[2023-11-24 12:03] LABS: Appearance, Urine Clear (Clear); Color, Urine Yellow (P-Yellow)
[2023-11-24] MEDS ORDERED: Insulin Glargine-Yfgn 100 Unit/mL 3 ML SYR SC ONE (12:10)
[2023-11-24] MEDS ORDERED: ELIQUIS5 M2 PO (14:19)
[2023-11-24] MEDS ORDERED: GLIP5 PO (14:19)
[2023-11-24] MEDS ORDERED: HUMULIN R100 UNIT/2 SC (14:20)
[2023-11-24] MEDS ORDERED: LACT PO (14:20)
[2023-11-24] MEDS ORDERED: AMOCLA500 PO (14:21)
--- NOTE | 2023-11-24 14:51 | NUR ---
DISCHARGE NOTE this rn went over discharge education with the patient. to follow up up with new pcp yonas at [facility], patient verbalized understanding. medications faxed to [facility]. refferal to fer for outpatient management was faxed. patient aware of this and will call by next monday if not hearing from the office. home health is set up with physical therapy, wound care, and catheter care. this rn went over catheter care and the importance of cleaning and cleaning down the line away from the vagine. how to empty the bag and to remain clean and if the end touches something to wipe with a cleaning wipe alcholol wipe. patient verbalized understanding and demonstrated to this rn what to do. patient had wound care done before leaving. fresh clean and dry dressing in place.
--- NOTE | 2023-11-24 14:56 | NUR ---
discharge patient left pcu in wheelchair with all belonings and in no distress at 1456.
== END 2023-11-24 14:56 | disposition home or self-care (01) | DRG 638 ==
LOC: ER 08:20 → PCU 08:21 → ER 08:21 → PCU 14:47
PROVIDERS: Student in an Organized Health Care Education/Training Program; ADMIT Internal Medicine
DX: E11.65 Type 2 diabetes mellitus with hyperglycemia (principal); L97.829 Non-pressure chronic ulcer of other part of left lower leg with unspecified severity; T38.3X6A Underdosing of insulin and oral hypoglycemic [antidiabetic] drugs, initial encounter; E11.51 Type 2 diabetes mellitus with diabetic peripheral angiopathy without gangrene; I70.248 Atherosclerosis of native arteries of left leg with ulceration of other part of lower leg; I87.2 Venous insufficiency (chronic) (peripheral); E03.9 Hypothyroidism, unspecified; N18.30 Chronic kidney disease, stage 3 unspecified; E11.22 Type 2 diabetes mellitus with diabetic chronic kidney disease; I10 Essential (primary) hypertension; E11.40 Type 2 diabetes mellitus with diabetic neuropathy, unspecified; G25.81 Restless legs syndrome; Z91.138 Patient's unintentional underdosing of medication regimen for other reason; Z88.8 Allergy status to other drugs, medicaments and biological substances; Z79.4 Long term (current) use of insulin; Z79.01 Long term (current) use of anticoagulants; Z79.890 Hormone replacement therapy; Z88.2 Allergy status to sulfonamides
CPT/HCPCS: 36415; 73590; 80048; 80053; 81001; 81003; 82803; 82947; 83036; 83605; 83880; 83930; 84439; 84443; 85025; 87077; 87081; 87086; 87186; 93005; 93010; 93971; 96361; 96365; 96366; 97110; 97161; 99285-25; A9270; G0378; J0690; J0696; J1650; J1815; J7030; J7040

== ENCOUNTER 2023-12-18 09:26 | Emergency (ER) | payer OTHER ==
[~2023-12-18] VITALS: Ht 170.2 cm; Wt 113.4 kg
[~2023-12-18 09:26] MED LIST changes: +AMOCLA500 PO; +GLIP5 PO; +HUMULIN R100 UNIT/2 SC; +LACT PO
[2023-12-18] MEDS ORDERED: NS 1,000 ML IV SCH (09:30)
[2023-12-18 11:06] LABS: BASOPHILS PERCENT AUTO 1 % (0-2); EOSINOPHILS ABSOLUTE AUTO 0.28 K/mm3 (0.00-0.68); EOSINOPHILS PERCENT AUTO 3 % (0-6); Hematocrit 38.5 % (33.0-51.0); Hemoglobin 12.2 g/dL (11.5-16.0); IMMATURE GRAN ABSOLUTE AUTO 0.04 K/mm3 (0.00-0.10); IMMATURE GRAN PERCENT AUTO 0 % (0-1); LYMPHOCYTES ABSOLUTE AUTO 1.96 K/mm3 (0.84-5.20); LYMPHOCYTES PERCENT AUTO 20 % (21-46); MONOCYTES ABSOLUTE AUTO 0.79 K/mm3 (0.16-1.47); MONOCYTES PERCENT AUTO 8 % (4-13); Mean Corpuscular HGB 30.7 pg (26.0-34.0); Mean Corpuscular HGB Conc 31.7 g/dL (31.5-36.5); Mean Corpuscular Volume 97 fL (80-100); Mean Platelet Volume 10.1 fL (9.1-12.4); NEUTROPHILS ABSOLUTE AUTO 6.83 K/mm3 (1.96-9.15); NEUTROPHILS PERCENT AUTO 68 % (41-73); Platelet Count 263 K/mm3 (150-400); RDW Standard Deviation 49.5 fL (35.1-46.3); Red Blood Cell Count 3.98 M/mm3 (3.80-5.20)
[2023-12-18 11:27] LABS: Albumin, Blood 2.6 g/dL (3.4-5.0); Albumin/Globulin Ratio 0.6 (0.8-1.8); Bilirubin, Total 0.8 mg/dL (0.1-1.0); Bun/Creatinine Ratio 9.2 (12.0-20.0); Calcium, Blood 8.1 mg/dL (8.5-10.1); Creatinine, Blood 1.2 mg/dL (0.40-1.00); Globulin, Blood 4.7 g/dL (2.2-4.0); Potassium, Blood 3.9 mmol/L (3.5-5.5); Total Protein, Blood 7.3 g/dL (6.4-8.2)
[2023-12-18 12:48] LABS: Source, Urine Straight Cath
[2023-12-18 13:01] LABS: Appearance, Urine Hazy (Clear); Bilirubin, Urine Neg (Neg); Blood, Urine 2+ (Neg); Color, Urine Yellow (P-Yellow); Glucose Qualitative, Urine Neg (Neg); Ketones, Urine Neg (Neg); Leukocyte Esterase, Urine 3+ (Neg); Nitrite, Urine Pos (Neg); Protein, Urine 2+ (Neg); Specific Gravity, Urine 1.015 (1.003-1.022); Urobilinogen, Urine NORM (Normal)
[2023-12-18 13:09] LABS: Bacteria Many /hpf; Squamous Epithelial Cells Rare /hpf (Few); White Blood Cells, Urine TNTC /hpf (0-5); Yeast/Fungi Urine Few /hpf
[2023-12-18] MEDS ORDERED: CEPH500 PO (15:23)
[2023-12-18 15:46] VITALS: BP 138/86
== END 2023-12-18 15:46 | disposition home or self-care (01) ==
LOC: ER 09:26
PROVIDERS: Emergency Medicine
DX: N39.0 Urinary tract infection, site not specified (principal); R62.7 Adult failure to thrive; R53.83 Other fatigue; R19.7 Diarrhea, unspecified; E11.22 Type 2 diabetes mellitus with diabetic chronic kidney disease; I12.9 Hypertensive chronic kidney disease with stage 1 through stage 4 chronic kidney disease, or unspecified chronic kidney disease; N18.30 Chronic kidney disease, stage 3 unspecified; E03.9 Hypothyroidism, unspecified; E11.42 Type 2 diabetes mellitus with diabetic polyneuropathy; E78.5 Hyperlipidemia, unspecified; Z79.899 Other long term (current) drug therapy; Z88.2 Allergy status to sulfonamides; Z88.8 Allergy status to other drugs, medicaments and biological substances
CPT/HCPCS: 36415; 51702; 80053; 81001; 83605; 85025; 87040; 87077; 87086; 87186; 93005; 93010; 96360; 96361; 99284-25; J7030

== ENCOUNTER 2023-12-25 19:24 | Emergency (ER) | payer OTHER ==
[~2023-12-25] VITALS: Ht 170.2 cm; Wt 113.4 kg
[~2023-12-25 19:24] MED LIST changes: +CEPH500 PO
[2023-12-25 20:06] LABS: Calcium, Ionized (POC) 1.02 mmol/L (1.10-1.46); Chloride (POC) 106 mmol/L (98-108); Creatinine (POC) 1.4 mg/dL (0.6-1.0); Glucose (ISTAT POC) 282 mg/dL (70-99); Potassium (POC) 4.6 mmol/L (3.5-5.5); Sodium (POC) 137 mmol/L (135-148); Total CO2 (POC) 15 mmol/L (21-32)
[2023-12-25] MEDS ORDERED: Calcium Chloride 10% 10 ML SYR IV ONE (20:38)
[2023-12-25] MEDS ORDERED: Amiodarone HCl 50 MG / ML 3 ML Amp IV ONE (20:38)
[2023-12-25] MEDS ORDERED: Sodium Bicarb 8.4% 50 mEq Syringe IV ONE (20:38)
[2023-12-25] MEDS ORDERED: EPINEPhrine HCl 0.1 MG/ML 10ML SYR IV ONE (20:38)
== END 2023-12-25 22:55 ==
LOC: ER 19:24
PROVIDERS: Student in an Organized Health Care Education/Training Program
DX: I46.9 Cardiac arrest, cause unspecified (principal); E11.22 Type 2 diabetes mellitus with diabetic chronic kidney disease; I12.9 Hypertensive chronic kidney disease with stage 1 through stage 4 chronic kidney disease, or unspecified chronic kidney disease; N18.30 Chronic kidney disease, stage 3 unspecified; Z88.2 Allergy status to sulfonamides; Z88.8 Allergy status to other drugs, medicaments and biological substances; Z79.890 Hormone replacement therapy; Z79.899 Other long term (current) drug therapy; Z79.4 Long term (current) use of insulin; Z79.01 Long term (current) use of anticoagulants
CPT/HCPCS: 80047; 85014; 92950; 96374-59; 96375-59; 99285-25; J0282